=== PATIENT | female | born 1955 | race Hispanic/Latino ===

== ENCOUNTER 2018-06-14 15:44 | Emergency (ER) | payer BC ==
[2018-06-14] MEDS ORDERED: METHYLPREDNISOLONE 125 MG INJ ONE (16:13)
[2018-06-14] MEDS ORDERED: DIPHENHYDRAMINE 50 MG/ML VIAL ONE (16:13)
[2018-06-14] MEDS ORDERED: NA CHLORIDE 0.9% 1,000 ML ONE (16:13)
[2018-06-14] MEDS ORDERED: FAMOTIDINE 20 MG/2 ML VIAL IV ONE (16:13)
[2018-06-14] MEDS ORDERED: ALBUTEROL 2.5 MG/3 ML NEB SOL ONE (16:13)
--- NOTE | 2018-06-14 18:10 | ER ---
Nurse's Notes [facility] Name: Perlita Zapata Age: 62 yrs Sex: Female : 1955 Arrival Date: 06/14/2018 Time: 15:46 Bed 18 Private MD: Diagnosis: Allergy to seafood Presentation: 06/14 15:55 Presenting complaint: Patient states: i ate crawfish 30 minutes ago and now i am tw2 itching and i feel short of breath, i am allergy to shrimp. Transition of care: patient was not received from another setting of care. Onset: The symptoms/episode began/occurred suddenly, 30 minute(s) ago. Anaphylaxis evaluation, the patient reports or I have noted the following symptoms which indicate a significant risk of anaphylaxis: shortness of breath urticaria. Onset of symptoms was June 14, 2018. Risk Assessment: Do you want to hurt yourself or someone else? Patient reports no desire to harm self or others. Initial Sepsis Screen: Does the patient meet any 2 criteria? No. Patient's initial sepsis screen is negative. Does the patient have a suspected source of infection? No. Patient's initial sepsis screen is negative. Care prior to arrival: "i took some childrens benadryl because that's all my daughter had at her house". 15:55 Method Of Arrival: Ambulatory tw2 15:55 Acuity: PAULA 3 tw2 Historical: - Allergies: 15:59 Codeine; tw2 15:59 shrimp; tw2 - Home Meds: 15:59 "vitamins only" [Active]; tw2 - PMHx: 15:59 None; tw2 - PSHx: 15:59 Hysterectomy; Tubal ligation; Cholecystectomy; right knee surgery; tw2 - Immunization history:: Adult Immunizations Adult Immunizations. - Social history:: Smoking status: . - Ebola Screening: : Patient negative for fever greater than or equal to 101.5 degrees Fahrenheit, and additional compatible Ebola Virus Disease symptoms. Screenin:20 Abuse screen: Denies threats or abuse. Nutritional screening: No deficits noted. tw2 Tuberculosis screening: No symptoms or risk factors identified. Fall Risk None identified. Assessment: 16:18 General: Appears uncomfortable, well groomed, Behavior is anxious. Pain: Denies pain. tw2 Neuro: Level of Consciousness is awake, alert, obeys commands, Oriented to person, place, time, situation. Cardiovascular: Heart tones S1 S2 Patient's skin is warm and dry. Respiratory: Reports shortness of breath Airway is patent Respiratory effort is even, unlabored, Respiratory pattern is tachypnea Breath sounds are clear bilaterally. GI: No signs and/or symptoms were reported involving the gastrointestinal system. : No signs and/or symptoms were reported regarding the genitourinary system. Derm: Rash noted that is raised, urticaria, on back, chest, abdomen, right arm and left arm pt reports itching all over. 16:44 Reassessment: Patient appears in no apparent distress at this time. Patient and/or tw2 family updated on plan of care and expected duration. Pain level reassessed. Patient is alert, oriented x 3, equal unlabored respirations, skin warm/dry/pink. Patient states feeling better. Patient states symptoms have improved. 17:35 Reassessment: Patient appears in no apparent distress at this time. Patient and/or tw2 family updated on plan of care and expected duration. Pain level reassessed. Patient is alert, oriented x 3, equal unlabored respirations, skin warm/dry/pink. 18:27 Reassessment: Patient appears in no apparent distress at this time. Patient and/or tw2 family updated on plan of care and expected duration. Pain level reassessed. Patient is alert, oriented x 3, equal unlabored respirations, skin warm/dry/pink. Patient states feeling better. Patient states symptoms have improved. 19:00 Reassessment: Patient appears in no apparent distress at this time. Patient and/or tw2 family updated on plan of care and expected duration. Pain level reassessed. Patient is alert, oriented x 3, equal unlabored respirations, skin warm/dry/pink. Patient states feeling better. Patient states symptoms have improved. Vital Signs: 15:57 BP 166 / 102; Pulse 105; Resp 22; Temp 97.8(O); Pulse Ox 98% on R/A; Pain 0/10; tw2 16:18 BP 138 / 82; Pulse 91; Resp 17; Pulse Ox 96% on R/A; tw2 17:35 BP 137 / 62; Pulse 84; Resp 17; Pulse Ox 99% on R/A; tw2 18:26 BP 139 / 74; Pulse 81; Resp 17; Pulse Ox 99% on R/A; tw2 15:57 "no pain im just itching" tw2 ED Course: 15:46 Patient arrived in ED. mr 15:55 Zoila Salguero, RN is Primary Nurse. tw2 15:55 Bed in low position. Call light in reach. channel marketing specialist on. Pulse ox on. NIBP on. tw2 Warm blanket given. 15:57 Triage completed. tw2 15:57 Jeb Still PA is PHCP. cp 15:57 Jeb Nance MD is Attending Physician. cp 15:57 Arm band placed on. tw2 19:00 No provider procedures requiring assistance completed. IV discontinued, intact, tw2 bleeding controlled, No redness/swelling at site. Pressure dressing applied. Administered Medications: 16:05 Drug: Pepcid 20 mg Route: IVP; Site: right hand; tw2 16:45 Follow up: Response: No adverse reaction tw2 16:08 Drug: SOLU-Medrol 125 mg Route: IVP; Site: right hand; tw2 16:45 Follow up: Response: No adverse reaction tw2 16:12 Drug: Benadryl 50 mg Route: IVP; Site: right hand; tw2 16:44 Follow up: Response: No adverse reaction; Marked relief of symptoms tw2 16:16 Drug: NS 0.9% 1000 ml Route: IV; Rate: 1 bolus; Site: right hand; tw2 16:16 Drug: Albuterol 2.5 mg Route: Inhalation; tw2 16:45 Follow up: Response: No adverse reaction tw2 Outcome: 18:10 Discharge ordered by . cp 19:00 Discharged to home ambulatory, with significant other. tw2 19:00 Condition: stable 19:00 Discharge instructions given to patient, significant other, Instructed on discharge instructions, follow up and referral plans. medication usage, Demonstrated understanding of instructions, follow-up care, medications, Prescriptions given X 3. 19:01 Patient left the ED. tw2 Signatures: Becky DelgadoMartha, RN RN Jeb Guzman PA PA cp Wise, Tara, RN RN tw2
--- NOTE | 2018-06-14 18:10 | EDPHYS ---
Physician Documentation [facility] Name: Perlita Zapata Age: 62 yrs Sex: Female : 1955 Arrival Date: 06/14/2018 Time: 15:46 Bed 18 Private MD: ED Physician Jeb Nance HPI: 06/14 16:00 This 62 yrs old Female presents to ER via Ambulatory with complaints of cp Allergic Reaction, Itching. 16:00 The patient presents with itching. Onset: The symptoms/episode began/occurred just cp prior to arrival. Possible causes: shellfish. At home the patient or guardian has treated the symptoms with took 1 teaspoon of children's benadryl REPAIR CLERK. Severity of symptoms: in the emergency department the symptoms are unchanged despite home interventions. Patient reports known allergy to shrimp. Noticed generalized itching suddenly after eating crawfish 30 minutes ago. Historical: - Allergies: 15:59 Codeine; tw2 15:59 shrimp; tw2 - Home Meds: 15:59 "vitamins only" [Active]; tw2 - PMHx: 15:59 None; tw2 - PSHx: 15:59 Hysterectomy; Tubal ligation; Cholecystectomy; right knee surgery; tw2 - Immunization history:: Adult Immunizations Adult Immunizations. - Social history:: Smoking status: . - Ebola Screening: : Patient negative for fever greater than or equal to 101.5 degrees Fahrenheit, and additional compatible Ebola Virus Disease symptoms. ROS: 16:05 Constitutional: Negative for body aches, chills, fever, poor PO intake. cp 16:05 Eyes: Negative for injury, pain, redness, and discharge. cp 16:05 Cardiovascular: Negative for chest pain, edema, palpitations. cp 16:05 ENT: Negative for drainage from ear(s), ear pain, sore throat, difficulty swallowing, cp difficulty handling secretions. 16:05 Respiratory: Negative for cough. 16:05 Abdomen/GI: Negative for abdominal pain, nausea, vomiting, and diarrhea. 16:05 Skin: Positive for rash, diffusely. 16:05 Neuro: Negative for altered mental status, dizziness, headache, weakness. 16:05 All other systems are negative. Exam: 16:10 Constitutional: The patient appears in no acute distress, alert, awake, cp non-diaphoretic, non-toxic, well developed, well nourished. 16:10 Head/Face: Normocephalic, atraumatic. Eyes: Pupils equal round and reactive to light, cp extra-ocular motions intact. Lids and lashes normal. Conjunctiva and sclera are non-icteric and not injected. Cornea within normal limits. Periorbital areas with no swelling, redness, or edema. ENT: Nares patent. No nasal discharge, no septal abnormalities noted. Tympanic membranes are normal and external auditory canals are clear. Oropharynx with no redness, swelling, or masses, exudates, or evidence of obstruction, uvula midline. Mucous membranes moist. 16:10 Chest/axilla: Palpation: is normal, no crepitus, no tenderness. 16:10 Cardiovascular: Rate: tachycardic, Rhythm: regular, JVD: is not appreciated. 16:10 Respiratory: the patient does not display signs of respiratory distress, Respirations: normal, no use of accessory muscles, no retractions, no splinting, no tachypnea, labored breathing, is not present, Breath sounds: are clear throughout, no decreased breath sounds, no stridor, no wheezing. 16:10 Abdomen/GI: Exam negative for discomfort, distension, guarding, Inspection: abdomen appears normal. 16:10 Back: pain, is absent, ROM is normal. 16:10 Skin: consistent with urticaria, and is diffusely located. 16:10 Neuro: Orientation: to person, place \\T\\ time. Mentation: is normal, Cerebellar function: is grossly normal, Motor: moves all fours, strength is normal, Sensation: is normal. Vital Signs: 15:57 BP 166 / 102; Pulse 105; Resp 22; Temp 97.8(O); Pulse Ox 98% on R/A; Pain 0/10; tw2 16:18 BP 138 / 82; Pulse 91; Resp 17; Pulse Ox 96% on R/A; tw2 17:35 BP 137 / 62; Pulse 84; Resp 17; Pulse Ox 99% on R/A; tw2 18:26 BP 139 / 74; Pulse 81; Resp 17; Pulse Ox 99% on R/A; tw2 15:57 "no pain im just itching" tw2 MDM: 15:57 Patient medically screened. cp 16:00 Differential diagnosis: anaphylaxis, angioedema, urticaria. cp 16:45 ED course: VSS. Patient reports generalized itching improved. cp 17:53 Data reviewed: vital signs, nurses notes, and as a result, I will discharge patient. 06/14 15:59 Order name: IV Start; Complete Time: 16:16 tw2 Administered Medications: 16:05 Drug: Pepcid 20 mg Route: IVP; Site: right hand; tw2 16:45 Follow up: Response: No adverse reaction tw2 16:08 Drug: SOLU-Medrol 125 mg Route: IVP; Site: right hand; tw2 16:45 Follow up: Response: No adverse reaction tw2 16:12 Drug: Benadryl 50 mg Route: IVP; Site: right hand; tw2 16:44 Follow up: Response: No adverse reaction; Marked relief of symptoms tw2 16:16 Drug: NS 0.9% 1000 ml Route: IV; Rate: 1 bolus; Site: right hand; tw2 16:16 Drug: Albuterol 2.5 mg Route: Inhalation; tw2 16:45 Follow up: Response: No adverse reaction tw2 Disposition: 06/15 07:31 Co-signature as Attending Physician, Jeb Nance MD I agree with the assessment and katia plan of care. Disposition: 06/14/18 18:10 Discharged to Home. Impression: Allergy to seafood. - Condition is Stable. - Discharge Instructions: Allergies, Adult, Epinephrine Injection, Seafood Allergy. - Prescriptions for prednisone 50 mg Oral tablet - take 1 tablet by ORAL route once daily for 5 days; 5 tablet. Pepcid 20 mg Oral Tablet - take 1 tablet by ORAL route every 12 hours for 5 days; 10 tablet. EpiPen 0.3 mg Injection auto- injector - inject 1 pen by INTRAMUSCULAR route as directed Inject into the outer portion of the thigh, through clothing if necessary. Indicated in the emergency treatment of allergic reactions; 2 Kit. - Medication Reconciliation Form, Thank You Letter, Antibiotic Education, Prescription Opioid Use form. - Follow up: Private Physician; When: 2 - 3 days; Reason: Recheck today's complaints. - Problem is new. - Symptoms have improved. Signatures: Jeb Nance MD MD cha Smirch, Shelby, RN RN Jeb Still PA PA cp Wise, Tara RN RN tw2 Corrections: (The following items were deleted from the chart) 06/14 19:01 18:10 06/14/2018 18:10 Discharged to Home. Impression: Allergy to seafood. Condition is tw2 Stable. Forms are Medication Reconciliation Form, Thank You Letter, Antibiotic Education, Prescription Opioid Use. Follow up: Private Physician; When: 2 - 3 days; Reason: Recheck today's complaints. Problem is new. Symptoms have improved. cp
== END 2018-06-14 19:01 | disposition home or self-care (01) ==
LOC: ER 15:44
DX: T78.1XXA Other adverse food reactions, not elsewhere classified, initial encounter (principal); X58.XXXA Exposure to other specified factors, initial encounter; Z88.6 Allergy status to analgesic agent; Z91.013 Allergy to seafood
CPT/HCPCS: 96374; 96375; 99284; J2930; J7030

== ENCOUNTER 2018-08-18 20:15 | Emergency (ER) | payer BC ==
--- OUTSIDE RECORDS SUMMARY | 2018-08-18 20:18 | XMS REPORT ---
:1955 Author Organization [employer] Care Team Providers Name Role Phone Yamel Mansfield Provider Role Unavailable Allergies, Adverse Reactions, Alerts Substance Reaction Event Type codeine heart racing; felt like she was going to pass out; nausea Drug Allergy Problems Problem Type Condition Code Onset Dates Condition Status Problem Hypercholesterolemia E78.00 Active Problem Right hip pain M25.551 Active Problem Dizziness R42 Active Problem Acute right ankle pain M25.571 Active Problem Other chronic pain G89.29 Active Problem Pain in right knee M25.561 Active Problem Mixed hyperlipidemia E78.2 Active Problem Right thigh pain M79.651 Active Problem Swelling of right lower extremity M79.89 Active Problem Joint swelling M25.40 Active Assessment Right hip pain M25.551 Active Assessment Right thigh pain M79.651 Active Assessment Joint swelling M25.40 Active Assessment Prediabetes R73.03 Active Assessment Pain in right knee M25.561 Active Problem Allergic rhinitis, unspecified J30.9 Active seasonality, unspecified trigger Assessment Mixed hyperlipidemia E78.2 Active Problem Prediabetes R73.03 Active Medications Medication Code Code Instructions Start End Status Dosage System Date Date Multivitamin [facility] [id number] - Orally Active as Adult directed Fluticasone [facility] [id number] 50 MCG/BLIST Active 1 puff Propionate Inhalation (Inhal) Twice a day Meloxicam [facility] [id number] 15 MG Orally JuneOct 30, Active 1/2 to 1 Once a day as 2018 tablet needed for pain Vitamin D ND 05863974469 2000 UNIT Active 1 tablet Orally Once a day Results No Known Results Summary Purpose [employer] Submission
--- OUTSIDE RECORDS SUMMARY | 2018-08-18 20:18 | XMS REPORT ---
:1955 Author Organization [employer] Care Team Providers Name Role Phone Yamel Mansfield Provider Role Unavailable Allergies, Adverse Reactions, Alerts Substance Reaction Event Type codeine heart racing; felt like she was going to pass out; nausea Drug Allergy Problems Problem Type Condition Code Onset Dates Condition Status Assessment Acute right ankle pain M25.571 Active Problem Allergic rhinitis, unspecified J30.9 Active seasonality, unspecified trigger Assessment Swelling of right lower extremity M79.89 Active Assessment Other chronic pain G89.29 Active Assessment Pain in right knee M25.561 Active Problem Swelling of right lower extremity M79.89 Active Problem Acute right ankle pain M25.571 Active Problem Other chronic pain G89.29 Active Problem Dizziness R42 Active Problem Prediabetes R73.03 Active Problem Pain in right knee M25.561 Active Problem Hypercholesterolemia E78.00 Active Medications Medication Code Code Instructions Start End Status Dosage System Date Date Multivitamin [facility] [id number] - Orally Active as Adult directed Meloxicam [facility] 14431505748 15 MG Orally JuneAugust 14, Active 1/2 to 1 Once a day as 2018 tablet needed for pain Vitamin D ND 43492429690 2000 UNIT Active 1 tablet Orally Once a day Fluticasone [facility] [address]-49 50 MCG/BLIST Active 1 puff Propionate Inhalation (Inhal) Twice a day Results No Known Results Summary Purpose [employer] Submission
--- NOTE | 2018-08-18 21:24 | ER ---
Nurse's Notes [facility] Name: Perlita Zapata Age: 62 yrs Sex: Female : 1955 Arrival Date: 08/18/2018 Time: 20:18 Bed 8 Private MD: Yamel Mansfield Diagnosis: Pain in right knee Presentation: 08/18 20:31 Presenting complaint: Patient states: my right knee has been hurting for a week the bb pain is getting so bad she is having difficulty walking and she has appt with doctor on but could not wait. The pain is sharp and at worse is 9/10. Transition of care: patient was not received from another setting of care. Onset of symptoms was August 11, 2018. Risk Assessment: Do you want to hurt yourself or someone else? Patient reports no desire to harm self or others. Initial Sepsis Screen: Does the patient meet any 2 criteria? No. Patient's initial sepsis screen is negative. Does the patient have a suspected source of infection? No. Patient's initial sepsis screen is negative. Care prior to arrival: None. 20:31 Method Of Arrival: Ambulatory bb 20:31 Acuity: PAULA 4 bb Historical: - Allergies: 20:34 Codeine; bb 20:34 shrimp; bb - Home Meds: 20:34 None [Active]; bb - PMHx: 20:34 None; bb - PSHx: 20:34 Knee surgery; Hysterectomy; Tubal ligation; Cholecystectomy; bb - Immunization history:: Adult Immunizations up to date. - Social history:: Smoking status: Patient/guardian denies using tobacco. - Ebola Screening: : No symptoms or risks identified at this time. Screenin:28 Abuse screen: Denies threats or abuse. Denies injuries from another. Nutritional aa1 screening: No deficits noted. Tuberculosis screening: No symptoms or risk factors identified. Fall Risk None identified. Assessment: 20:28 General: Appears in no apparent distress. comfortable, Behavior is calm, cooperative, aa1 appropriate for age. Pain: Complains of pain in right knee Pain began 1 week ago Aggravated by weight bearing. Neuro: Level of Consciousness is awake, alert, obeys commands, Oriented to person, place, time, situation, Moves all extremities. Full function Gait is steady. Respiratory: Airway is patent Respiratory effort is even, unlabored, Respiratory pattern is regular, symmetrical. GI: No signs and/or symptoms were reported involving the gastrointestinal system. : No signs and/or symptoms were reported regarding the genitourinary system. EENT: No signs and/or symptoms were reported regarding the EENT system. Derm: Skin is intact, is healthy with good turgor, Skin is pink, warm \T\ dry. Musculoskeletal: Circulation, motion, and sensation intact. Capillary refill < 3 seconds, Range of motion: intact in all extremities. 21:41 Reassessment: Patient appears in no apparent distress at this time. Patient is alert, aa1 oriented x 3, equal unlabored respirations, skin warm/dry/pink. Discussed d/c \T\ f/u instructions with pt \T\ spouse; denies questions or concerns at this time. Vital Signs: 20:34 BP 157 / 80; Pulse 73; Resp 16 S; Temp 97.9(O); Pulse Ox 98% on R/A; Weight 76.66 kg bb (R); Height 4 ft. 11 in. (149.86 cm) (R); Pain 9/10; 21:35 BP 113 / 65; Pulse 68; Resp 18; Temp 98.0; Pulse Ox 99% on R/A; aa1 20:34 Body Mass Index 34.13 (76.66 kg, 149.86 cm) bb ED Course: 20:18 Patient arrived in ED. es 20:18 Yamel Mansfield MD is Private Physician. es 20:25 Mini Dodge FNP-C is [facility]. kb 20:25 Misha Lloyd MD is Attending Physician. kb 20:28 Patient has correct armband on for positive identification. Bed in low position. Call aa1 light in reach. Pulse ox on. NIBP on. 20:34 Triage completed. bb 20:34 Arm band placed on Patient placed in an exam room, on a stretcher, on pulse oximetry. bb Family accompanied patient. 20:38 Hilda Johnson, CURTIS is Primary Nurse. aa1 21:03 Knee Right 3 View XRAY In Process Unspecified. EDMS 21:23 Yamel Mansfield MD is Referral Physician. kb 21:39 No provider procedures requiring assistance completed. Patient did not have IV access aa1 during this emergency room visit. Crutch training done. Knee immobilizer applied on right knee. Administered Medications: No medications were administered Outcome: 21:23 Discharge ordered by . linnette 21:41 Discharged to home ambulatory, with crutches, with significant other. aa1 21:41 Condition: good 21:41 Discharge instructions given to patient, significant other, Instructed on discharge instructions, follow up and referral plans. medication usage, crutch walking, Demonstrated understanding of instructions, follow-up care, medications, crutch walking, Prescriptions given X 2. 21:42 Patient left the ED. aa1 Signatures: Dispatcher [employer] EDMD Mini Dodge, REEL STRIPPER-C REEL STRIPPER-Hilda Montejo RN RN aa1 Carmen Tracy Brenda RN RN bb
--- NOTE | 2018-08-18 21:24 | EDPHYS ---
Physician Documentation [facility] Name: Perlita Zapata Age: 62 yrs Sex: Female : 1955 Arrival Date: 08/18/2018 Time: 20:18 Bed 8 Private MD: Yamel Masnfield ED Physician Misha Lloyd HPI: 08/18 21:19 This 62 yrs old Female presents to ER via Ambulatory with complaints of Knee kb Pain. 21:19 The patient presents with pain, that is acute. The complaints affect the right knee. kb Context: The problem was sustained believes it is from repetitive squating while doing yard work, resulted from a repetitive motion, the patient can fully bear weight, the patient is able to ambulate. Onset: The symptoms/episode began/occurred 1 week(s) ago. Modifying factors: The symptoms are alleviated by nothing. the symptoms are aggravated by weight bearing. Associated signs and symptoms: The patient has no apparent associated signs or symptoms. Treatment prior to arrival includes: no previous treatment. Severity of symptoms: At their worst the symptoms were moderate, in the emergency department the symptoms are unchanged. The patient has not experienced similar symptoms in the past. The patient has not recently seen a physician. Historical: - Allergies: 20:34 Codeine; bb 20:34 shrimp; bb - Home Meds: 20:34 None [Active]; bb - PMHx: 20:34 None; bb - PSHx: 20:34 Knee surgery; Hysterectomy; Tubal ligation; Cholecystectomy; bb - Immunization history:: Adult Immunizations up to date. - Social history:: Smoking status: Patient/guardian denies using tobacco. - Ebola Screening: : No symptoms or risks identified at this time. ROS: 21:18 Constitutional: Negative for fever, chills, and weight loss, Neck: Negative for injury, kb pain, and swelling, Cardiovascular: Negative for chest pain, palpitations, and edema, Respiratory: Negative for shortness of breath, cough, wheezing, and pleuritic chest pain, Abdomen/GI: Negative for abdominal pain, nausea, vomiting, diarrhea, and constipation, Skin: Negative for injury, rash, and discoloration, Neuro: Negative for headache, weakness, numbness, tingling, and seizure. 21:18 MS/extremity: Positive for pain, of the right knee. Exam: 21:18 Constitutional: This is a well developed, well nourished patient who is awake, alert, kb and in no acute distress. Head/Face: Normocephalic, atraumatic. Chest/axilla: Normal chest wall appearance and motion. Nontender with no deformity. No lesions are appreciated. Cardiovascular: Regular rate and rhythm with a normal S1 and S2. No gallops, murmurs, or rubs. Normal PMI, no JVD. No pulse deficits. Respiratory: Lungs have equal breath sounds bilaterally, clear to auscultation and percussion. No rales, rhonchi or wheezes noted. No increased work of breathing, no retractions or nasal flaring. Abdomen/GI: Soft, non-tender, with normal bowel sounds. No distension or tympany. No guarding or rebound. No evidence of tenderness throughout. Back: No spinal tenderness. No costovertebral tenderness. Full range of motion. Skin: Warm, dry with normal turgor. Normal color with no rashes, no lesions, and no evidence of cellulitis. MS/ Extremity: Pulses equal, no cyanosis. Neurovascular intact. Full, normal range of motion. Neuro: Awake and alert, GCS 15, oriented to person, place, time, and situation. Cranial nerves II-XII grossly intact. Motor strength 5/5 in all extremities. Sensory grossly intact. Cerebellar exam normal. Normal gait. Vital Signs: 20:34 BP 157 / 80; Pulse 73; Resp 16 S; Temp 97.9(O); Pulse Ox 98% on R/A; Weight 76.66 kg bb (R); Height 4 ft. 11 in. (149.86 cm) (R); Pain 9/10; 21:35 BP 113 / 65; Pulse 68; Resp 18; Temp 98.0; Pulse Ox 99% on R/A; aa1 20:34 Body Mass Index 34.13 (76.66 kg, 149.86 cm) bb MDM: 20:25 Patient medically screened. kb 21:17 Data reviewed: vital signs, nurses notes. Data interpreted: Pulse oximetry: on room air kb is 98 %. Interpretation: normal. Test interpretation: by ED physician or midlevel provider: plain radiologic studies, negative for fracture. Counseling: I had a detailed discussion with the patient and/or guardian regarding: the historical points, exam findings, and any diagnostic results supporting the discharge/admit diagnosis, radiology results, the need for outpatient follow up, a orthopedic surgeon, to return to the emergency department if symptoms worsen or persist or if there are any questions or concerns that arise at home. 21:18 ED course: Scheduled for appt with Norris on . Educated to keep appt. . kb 08/18 20:29 Order name: Knee Right 3 View XRAY kb 08/18 21:17 Order name: Knee Immobilizer 08/18 21:17 Order name: Crutches Administered Medications: No medications were administered Disposition: 08/19 00:00 Co-signature as Attending Physician, Misha Lloyd MD. Disposition: 08/18/18 21:23 Discharged to Home. Impression: Pain in right knee. - Condition is Stable. - Discharge Instructions: Knee Pain, [id number]. - Prescriptions for Tramadol 50 mg Oral Tablet - take 1 tablet by ORAL route every 8 hours as needed; 12 tablet. - Medication Reconciliation Form, Thank You Letter, Antibiotic Education, Prescription Opioid Use form. - Follow up: Emergency Department; When: As needed; Reason: Worsening of condition. Follow up: Yamel Mansfield MD; When: 2 - 3 days; Reason: Recheck today's complaints, Continuance of care, Re-evaluation by your physician. Signatures: Dispatcher [employer] EDVA Mini Dodge, WINDOWS DESKTOP ENGINEER-C WINDOWS DESKTOP ENGINEER-CkHilda Bonner RN RN aa1 Megan Scherer RN RN bb Misha Lloyd MD MD Corrections: (The following items were deleted from the chart) 08/18 21:42 21:23 08/18/2018 21:23 Discharged to Home. Impression: Pain in right knee. Condition is aa1 Stable. Forms are Medication Reconciliation Form, Thank You Letter, Antibiotic Education, Prescription Opioid Use. Follow up: Emergency Department; When: As needed; Reason: Worsening of condition. Follow up: Yamel Mansfield; When: 2 - 3 days; Reason: Recheck today's complaints, Continuance of care, Re-evaluation by your physician. kb
--- NOTE | 2018-08-19 08:12 | RAD REPORT ---
EXAM DESCRIPTION: RAD - Knee Right 3 View - 08/18/2018 9:03 pm CLINICAL HISTORY: PAIN Knee pain, difficulty walking COMPARISON: Knee Right 2 View dated 07/15/2018; Knee Right 2 View dated 07/13/2015 FINDINGS: A small suprapatellar joint effusion is suspected. No acute fracture or dislocation eviden t. If pain persists or progresses, MR imaging followup would be recommended.
== END 2018-08-18 21:42 | disposition home or self-care (01) ==
LOC: ER 20:15
DX: M25.561 Pain in right knee (principal); Z88.5 Allergy status to narcotic agent; Z91.013 Allergy to seafood
CPT/HCPCS: 99284

== ENCOUNTER 2020-12-12 06:09 | Emergency (ER) | payer BC, OTHER ==
[2020-12-12 06:48] LABS: Urine Blood Negative (Negative); Urine Glucose Negative (Negative); Urine Protein Negative (Negative); Urine Specific Gravity 1.025 (1.005-1.030); Urine pH 5.5 (5.0-7.0)
[2020-12-12 07:08] LABS: Absolute Lymphocytes (CBC) 2.7 K/uL (0.7-4.9); Basophils % 0.9 % (0-1.3); Hematocrit 40.8 % (36.0-45.0); Lymphocytes % 32.4 % (15.3-44.8); MPV 7.4 fL (7.6-11.3); RBC Red Blood Cell Count 4.64 M/uL (3.86-4.86)
[2020-12-12 07:17] LABS: Protime INR 1.03
[2020-12-12] MEDS ORDERED: FAMOTIDINE 20 MG/2 ML VIAL IV ONE (07:24)
[2020-12-12] MEDS ORDERED: NA CHLORIDE 0.9% 500 ML ONE (07:24)
[2020-12-12] MEDS ORDERED: ONDANSETRON 4 MG/2 ML VIAL ONE (07:24)
[2020-12-12 07:35] LABS: ALT/SGPT 29 U/L (12-78); AST/SGOT 17 U/L (15-37); Alkaline Phosphatase 124 U/L (45-117); BUN Blood Urea Nitrogen 12 mg/dL (7-18); Bicarbonate 29 mmol/L (21-32); Bilirubin Direct 0.1 mg/dL (0-0.2); Bilirubin Total 0.4 mg/dL (0.2-1.0); Glucose Level 108 mg/dL (74-106); Magnesium 2.4 mg/dL (1.8-2.4); Potassium 3.5 mmol/L (3.5-5.1); Protein, Total 8.1 g/dL (6.4-8.2); Sodium Level 142 mmol/L (136-145); Troponin (Emerg Dept Use Only) < 0.02 ng/mL (0.0-0.045)
[2020-12-12 07:47] LABS: Urine Bacteria 20-50 /HPF (<20); Urine Mucus 1+ /HPF (NONE SEEN); Urine RBC <5 /HPF (NONE SEEN)
--- NOTE | 2020-12-12 07:56 | RAD REPORT ---
EXAM DESCRIPTION: CT - Head Brain Wo Cont - 12/12/2020 7:45 am CLINICAL HISTORY: Weakness and nausea COMPARISON: None. TECHNIQUE: Computed axial tomography of the head was obtained. IV contrast was not requested. All CT scans are performed using dose optimization technique as appropriate and may include automated exposure control or mA/KV adjustment according to patient size. FINDINGS: An intracranial bleed is not seen . The ventricles are normal in caliber. No extra-axial fluid collection is noted. Fluid within the sinuses/ mastoids is not seen. IMPRESSION: No acute intracranial abnormality is seen. If patient's symptoms persist MRI of the bra in would be recommended.
--- NOTE | 2020-12-12 08:20 | EDPHYS ---
Physician Documentation [facility] Name: Perlita Zapata Age: 65 yrs Sex: Female : 1955 Arrival Date: 12/12/2020 Time: 06:18 Bed 11 Private MD: ED Physician Mir Saxena HPI: 12/12 06:33 This 65 yrs old Female presents to ER via Wheelchair with complaints of cp Nausea/Vomiting, General Weakness. 06:33 The patient presents to the emergency department with nausea, that is mild, vomiting, 1 cp times today. 06:33 Onset: The symptoms/episode began/occurred while in ED with family member, patient cp reports she started having general weakness, nausea. 1 episode of vomiting. Patient denies chest and/or abdominal pain. Historical: - Allergies: 06:25 Codeine; bc5 06:25 shrimp; bc5 - Immunization history:: Adult Immunizations up to date, . - Social history:: Smoking status: Patient denies any tobacco usage or history of. ROS: 06:35 Constitutional: Negative for body aches, chills, fever, poor PO intake. cp 06:35 Eyes: Negative for injury, pain, redness, and discharge. cp 06:35 ENT: Negative for drainage from ear(s), ear pain, sore throat, difficulty swallowing, difficulty handling secretions. 06:35 Cardiovascular: Negative for chest pain, edema, palpitations. 06:35 Respiratory: Negative for cough, shortness of breath, wheezing. 06:35 Abdomen/GI: Positive for nausea, vomiting, Negative for abdominal pain, diarrhea, constipation, anorexia, hematemesis. 06:35 Back: Negative for pain at rest, pain with movement. 06:35 : Negative for urinary symptoms. 06:35 Skin: Negative for cellulitis, rash. 06:35 Neuro: Positive for weakness, Negative for altered mental status, dizziness, headache, loss of consciousness, syncope. 06:35 All other systems are negative. Exam: 06:40 Constitutional: The patient appears in no acute distress, alert, awake, cp non-diaphoretic, non-toxic, well developed, well nourished. 06:40 Head/Face: Normocephalic, atraumatic. cp 06:40 Eyes: Periorbital structures: appear normal, Conjunctiva: normal, no exudate, no injection, Sclera: no appreciated abnormality, Lids and lashes: appear normal, bilaterally. 06:40 ENT: External ear(s): are unremarkable, Nose: is normal, Mouth: Lips: moist, Oral mucosa: moist, Posterior pharynx: Airway: no evidence of obstruction, patent. 06:40 Chest/axilla: Inspection: normal, Palpation: is normal, no crepitus, no tenderness. 06:40 Cardiovascular: Rate: normal, Rhythm: regular. 06:40 Respiratory: the patient does not display signs of respiratory distress, Respirations: normal, no use of accessory muscles, no retractions, labored breathing, is not present, Breath sounds: are clear throughout, no decreased breath sounds. 06:40 Abdomen/GI: Inspection: abdomen appears normal, Bowel sounds: active, all quadrants, Palpation: abdomen is soft and non-tender, in all quadrants. 06:40 Back: pain, is absent, ROM is normal. 06:40 Neuro: Orientation: to person, place \T\ time. Mentation: is normal, Cerebellar function: is grossly normal, Motor: moves all fours, strength is normal, Sensation: is normal. 06:53 ECG was reviewed by the Attending Physician. cp Vital Signs: 06:21 BP 116 / 62; Pulse 66; Resp 15; Temp 97.6(T); Pulse Ox 98% on R/A; Weight 76.66 kg; bc5 Height 4 ft. 11 in. (149.86 cm) (R); Pain 0/10; 08:19 BP 100 / 64; Pulse 68; Resp 16; Pulse Ox 100% on R/A; Pain 0/10; ap3 06:21 Body Mass Index 34.13 (76.66 kg, 149.86 cm) bc5 MDM: 06:23 Patient medically screened. katia 07:00 Differential diagnosis: gastritis, viral gastroenteritis, gastroenteritis, dehydration, cp hyperglycemia, hypoglycemia, electrolyte abnormality. 08:19 Data reviewed: vital signs, nurses notes, lab test result(s), EKG, radiologic studies, cp CT scan. 08:19 Test interpretation: by ED physician or midlevel provider: ECG. Counseling: I had a cp detailed discussion with the patient and/or guardian regarding: the historical points, exam findings, and any diagnostic results supporting the discharge/admit diagnosis, lab results, radiology results, to return to the emergency department if symptoms worsen or persist or if there are any questions or concerns that arise at home. Response to treatment: the patient's symptoms have markedly improved after treatment, patient is well hydrated. VSS. Patient reports symptoms improved. Vomiting resolved. Will discharge to home for continued monitoring. 12/12 06:27 Order name: Glucose, Ancillary Testing; Complete Time: 07:29 EDMS 12/12 06:30 Order name: Basic Metabolic Panel 12/12 06:30 Order name: CBC with Diff 12/12 06:30 Order name: LFT's 12/12 06:30 Order name: Magnesium; Complete Time: 07:58 12/12 06:30 Order name: PT-INR; Complete Time: 07:29 12/12 06:30 Order name: Troponin (emerg Dept Use Only); Complete Time: 07:58 12/12 06:30 Order name: Urine Microscopic Only; Complete Time: 07:58 12/12 07:59 Interpretation: Normal except: UBACT 20-50. 12/12 06:31 Order name: Basic Metabolic Panel; Complete Time: 07:58 EDMS 12/12 07:58 Interpretation: Normal except: GLUC 108; GFR 83. 12/12 06:31 Order name: CBC with Automated Diff; Complete Time: 07:29 EDMS 12/12 07:29 Interpretation: Normal except: MPV 7.4. 12/12 06:31 Order name: Liver (Hepatic) Function; Complete Time: 07:58 EDMS 12/12 06:47 Order name: Urine Dipstick-Ancillary; Complete Time: 07:29 EDMN 12/12 07:59 Interpretation: Normal except: UESTR Trace. 12/12 07:30 Order name: CT Head Brain wo Cont; Complete Time: 07:58 12/12 07:59 Interpretation: Report reviewed. 12/12 07:48 Order name: Urine Culture EDMN 12/12 06:30 Order name: EKG; Complete Time: 06:31 12/12 06:30 Order name: Cardiac monitoring; Complete Time: 06:58 12/12 06:30 Order name: EKG - Nurse/Tech; Complete Time: 06:58 12/12 06:30 Order name: IV Saline Lock; Complete Time: 06:58 12/12 06:30 Order name: Labs collected and sent; Complete Time: 06:57 cp 12/12 06:30 Order name: O2 Per Protocol; Complete Time: 06:37 cp 12/12 06:30 Order name: O2 Sat Monitoring; Complete Time: 06:37 cp 12/12 06:30 Order name: Urine Dipstick-Ancillary (obtain specimen); Complete Time: 06:58 cp EC:53 Rate is 60 beats/min. Rhythm is regular. UT interval is normal. QRS interval is cp prolonged at 118 msec. QT interval is normal. T waves are Inverted in leads aVR, V2. Interpreted by me. Reviewed by me. Administered Medications: 07:07 Drug: Zofran (Ondansetron) 4 mg Route: IVP; Infused Over: 2 mins; Site: left wg antecubital; 08:20 Follow up: Response: No adverse reaction; Nausea is decreased ap3 07:07 Drug: Pepcid (famotidine) 20 mg Route: IVP; Infused Over: 2 mins; Site: right wg antecubital; 08:20 Follow up: Response: No adverse reaction ap3 07:07 Drug: NS 0.9% 500 ml Route: IV; Rate: bolus; Infused Over: 15 mins; Site: left wg antecubital; Delivery: Primary tubing; 08:19 Follow up: IV Status: Completed infusion; IV Intake: 500ml ap3 08:19 Drug: Rocephin (cefTRIAXone) 1 grams Route: IV; Rate: calculated rate; Site: left ap3 antecubital; 08:32 Follow up: Response: No adverse reaction; IV Status: Completed infusion ap3 Disposition: 09:10 Co-signature as Attending Physician, Mir Saxena MD I agree with the assessment and rn plan of care. Attestation: The patient's history, exam findings, diagnostics, and a summary of any interventions or procedures was reviewed in detail with Jeb WORKMAN. Disposition Summary: 12/12/20 08:19 Discharge Ordered Location: Home cp Problem: new cp Symptoms: have improved cp Condition: Stable cp Diagnosis - UTI/ Urinary tract infection, site not specified cp - Weakness - general cp - Nausea with vomiting, unspecified cp Followup: cp - With: Private Physician - When: 2 - 3 days - Reason: Recheck today's complaints Discharge Instructions: - Discharge Summary Sheet cp - Nausea and Vomiting, Adult cp - Urinary Tract Infection, Adult cp - Weakness cp Forms: - Medication Reconciliation Form cp - Thank You Letter cp - Antibiotic Education cp - Prescription Opioid Use cp Prescriptions: - Augmentin 875-125 mg Oral Tablet - take 1 tablet by ORAL route every 12 hours for 7 days; 14 tablet; Refills: 0, cp Product Selection Permitted - Zofran 4 mg Oral Tablet - take 1 tablet by ORAL route every 12 hours As needed; 6 tablet; Refills: 0, cp Product Selection Permitted Signatures: Dispatcher [employer] EDJeb Gu MD MD cha Nieto, Roman, MD MD rn Page, Corey, PA PA cp Rima Mendez RN RN ap3 Duane Crisostomo RN wg Corado, Bella RN RN bc5
--- NOTE | 2020-12-12 08:20 | ER ---
Nurse's Notes [facility] Name: Perlita Zapata Age: 65 yrs Sex: Female : 1955 Arrival Date: 12/12/2020 Time: 06:18 Bed 11 Private MD: Diagnosis: UTI/ Urinary tract infection, site not specified;Weakness-general;Nausea with vomiting, unspecified Presentation: 12/12 06:21 Chief complaint: Patient states: Pt c/o weakness and nausea, sudden onset while bc5 visiting grandson in ED. Dexi 102. A\T\O x 3, RR is even and unlabored, speaking in clear and complete sentences at this time. Coronavirus screen: Vaccine status: Patient reports receiving the 2nd dose of the covid vaccine. Ebola Screen: Patient negative for fever greater than or equal to 101.5 degrees Fahrenheit, and additional compatible Ebola Virus Disease symptoms Patient denies exposure to infectious person. Patient denies travel to an Ebola-affected area in the 21 days before illness onset. No symptoms or risks identified at this time. Initial Sepsis Screen: Does the patient meet any 2 criteria? No. Patient's initial sepsis screen is negative. Does the patient have a suspected source of infection? No. Patient's initial sepsis screen is negative. Risk Assessment: Do you want to hurt yourself or someone else? Patient reports no desire to harm self or others. Onset of symptoms was December 12, 2020 at 06:15. 06:21 Method Of Arrival: Wheelchair bc5 06:21 Acuity: PAULA 4 bc5 Triage Assessment: 06:26 General: Appears in no apparent distress. comfortable, Behavior is calm, cooperative. bc5 Pain: Denies pain. GI: Reports nausea. Historical: - Allergies: 06:25 Codeine; bc5 06:25 shrimp; bc5 - Immunization history:: Adult Immunizations up to date, . - Social history:: Smoking status: Patient denies any tobacco usage or history of. Screenin:26 Abuse screen: Denies threats or abuse. Denies injuries from another. Nutritional bc5 screening: No deficits noted. Tuberculosis screening: No symptoms or risk factors identified. Fall Risk None identified. No fall in past 12 months (0 pts). No secondary diagnosis (0 pts). No IV (0 pts). Ambulatory Aid- None/Bed Rest/Nurse Assist (0 pts). Gait- Normal/Bed Rest/Wheelchair (0 pts) Mental Status- Oriented to own ability (0 pts). Total Benedict Fall Scale indicates No Risk (0-24 pts). Assessment: 06:27 GI: Abdomen is round non-distended. bc5 07:48 Reassessment: Patient and/or family updated on plan of care and expected duration. Pain ap3 level reassessed. Patient is alert, oriented x 3, equal unlabored respirations, skin warm/dry/pink. Patient states symptoms have improved. Vital Signs: 06:21 BP 116 / 62; Pulse 66; Resp 15; Temp 97.6(T); Pulse Ox 98% on R/A; Weight 76.66 kg; bc5 Height 4 ft. 11 in. (149.86 cm) (R); Pain 0/10; 08:19 BP 100 / 64; Pulse 68; Resp 16; Pulse Ox 100% on R/A; Pain 0/10; ap3 06:21 Body Mass Index 34.13 (76.66 kg, 149.86 cm) 5 ED Course: 06:18 Patient arrived in ED. wm 06:21 Kamryn Granado, RN is Primary Nurse. bc5 06:22 Jeb Still PA is PHCP. cp 06:22 Jeb Nance MD is Attending Physician. cp 06:25 Triage completed. bc5 06:26 Arm band placed on left wrist. bc5 06:27 Patient has correct armband on for positive identification. Bed in low position. Call [facility] light in reach. Side rails up X2. 06:27 No provider procedures requiring assistance completed. bc5 06:48 EKG done, by ED staff, reviewed by Mir Saxena MD. dc2 06:53 financial adviser on. Pulse ox on. NIBP on. dc2 06:55 Attending Physician role handed off by Jeb Nance MD cp 06:55 Mir Saxena MD is Attending Physician. cp 07:02 Patient is placed in psych hold. dc2 07:07 Basic Metabolic Panel Sent. wg 07:07 CBC with Diff Sent. wg 07:07 LFT's Sent. wg 07:45 CT Head Brain wo Cont In Process Unspecified. EDMS 07:[address] back [address]. ap3 08:32 IV discontinued, intact, bleeding controlled, No redness/swelling at site. Pressure ap3 dressing applied. Administered Medications: 07:07 Drug: Zofran (Ondansetron) 4 mg Route: IVP; Infused Over: 2 mins; Site: left wg antecubital; 08:20 Follow up: Response: No adverse reaction; Nausea is decreased ap3 07:07 Drug: Pepcid (famotidine) 20 mg Route: IVP; Infused Over: 2 mins; Site: right wg antecubital; 08:20 Follow up: Response: No adverse reaction ap3 07:07 Drug: NS 0.9% 500 ml Route: IV; Rate: bolus; Infused Over: 15 mins; Site: left wg antecubital; Delivery: Primary tubing; 08:19 Follow up: IV Status: Completed infusion; IV Intake: 500ml ap3 08:19 Drug: Rocephin (cefTRIAXone) 1 grams Route: IV; Rate: calculated rate; Site: left ap3 antecubital; 08:32 Follow up: Response: No adverse reaction; IV Status: Completed infusion ap3 Intake: 08:19 IV: 500ml; Total: 500ml. ap3 Outcome: 08:19 Discharge ordered by MD. cp 08:31 Discharged to home ambulatory, with family. ap3 08:31 Condition: good 08:31 Discharge instructions given to patient, family, Instructed on discharge instructions, follow up and referral plans. medication usage, Demonstrated understanding of instructions, follow-up care, medications, Prescriptions given X 2. 08:35 Patient left the ED. ap3 Signatures: Dispatcher [employer] EDMS Jeb Still PA PA cp Prokisch, Amanda, RN RN ap3 Yuly Cochran Liam, RN Kamryn Granado RN RN bc5 Jammie Altman RN RN dc2
[2020-12-12] MEDS ORDERED: CEFTRIAXONE/SWI 1gm 1 GM/10 ML SYR ONE (08:35)
[2020-12-12 08:47] VITALS: TEMP 97.6
[2020-12-12 08:48] VITALS: BP 100/64; O2SAT 100
--- NOTE | 2020-12-12 13:13 | EKG ---
Test Date: 2020-12-12 Test Time: 06:48:19 Product Sales Engineer: LILLIAM MEASUREMENT RESULTS: Intervals: Rate: 60 PA: 130 QRSD: 118 QT: 484 QTc: 484 Amity: P: 52 PA: 130 QRS: 31 T: 32 INTERPRETIVE STATEMENTS: Normal sinus rhythm Low voltage QRS Right bundle branch block Abnormal ECG Compared to ECG 05/21/2016 21:03:18 No significant changes Electronically Signed On 12-12-20 13:12:23 CDT by Jaxson Stuart
== END 2020-12-12 08:35 | disposition home or self-care (01) ==
LOC: ER 06:09
DX: N39.0 Urinary tract infection, site not specified (principal); R53.1 Weakness; Z88.5 Allergy status to narcotic agent; Z91.013 Allergy to seafood
CPT/HCPCS: 93005; 87088; 85025; 87086; 80048; 36415; 83735; 85610; 82947; 80076; 84484; 70450; 99285; J0696; J7040; J2405; 81003; 81015

== ENCOUNTER 2021-06-10 21:25 | Emergency (ER) | payer OTHER ==
--- OUTSIDE RECORDS SUMMARY | 2021-06-10 21:28 | XMS REPORT | Continuity of Care Document ---
:1955 Author Organization [facility] t Address [address] [place] [address] Care Team Providers Name Role Phone Judy Acosta Attending Clinician Unavailable Problems This patient has no known problems. Allergies, Adverse Reactions, Alerts Allergy Allergy Status Severity Reaction(s) Onset Inactive Treating Comm ents Source Name Type Date Date Clinician codeine Adverse Active heart [facility] Reaction racing; felt Dinorah kes - like she was Aristides deisy going to l pass out; [facility] shellfis Adverse Active [facility] Reaction hands/feet; Saritha es - itching ; [facility]oria rash l [facility] Medications Ordered Filled Start Stop Current Ordering Indication Dosage Frequency Signature Comments Components Source Medication Medication Date Date Medication? Clinician (SIG) Name Name Multivitami Multivitami Yes [facility] as [facility] Adult n Adult Ac[facility] directed [facility] Glucosamine Glucosamine Yes Weston [address] [facility] Complex/Vit Complex/Vit [facility]osta [facility] D3 [facility] D3 [facility] Fluticasone Fluticasone Yes Weston [address] [facility] Propionate Propionate Acosta in each [facility] Vitamin B12 Vitamin B12 Yes Weston Liquid--[address] [facility] Acosta drop (1 [facility] mL[facility] Procedures This patient has no known procedures. Encounters Start End Encounter Admission Attending Care Care Encounter Source Date/Time Date/Time Type Type Clinicians Facility Department ID 2021-04-25 Outpatient Acosta, [facility] 2021-04-18 Outpatient Acosta, [facility] 14:38:44 [facility] 2021-04-18 Outpatient Acosta, [facility] 13:42:13 [facility] [id number] [facility] 2021-04-18 Outpatient Acosta, [facility] 13:12:40 [facility] [id number] [facility] 2021-04-18 Outpatient Acosta, [facility] 12[facility]54:06 [facility] [id number] [facility] 2021-04-18 Outpatient Acosta, [facility] 12:37:44 [facility] [address] [facility] 2021-04-18 Outpatient Acosta, [facility] 12:15:54 [facility] [id number] [facility] 2021-04-18 Outpatient Acosta, [facility] 12:09:57 [facility] [id number] [facility] 2021-04-18 Outpatient Acosta, [facility] 11:39:22 [facility] [id number] [facility] 2021-04-16 2021-04-16 ambulatory [facility] [id number] [facility] 2021-04-16 2021-04-16 ambulatory [facility] [id number] [facility] 2021-01-18 2021-01-18 Outpatient [facility] [id number] [facility] 2021-01-12 2021-01-12 Outpatient [facility] [id number] [facility] 2021-01-11 2021-01-11 Outpatient [facility] [id number] [facility] 2020-11-20 2020-11-20 Outpatient [facility] [id number] [facility] 2020-11-16 2020-11-16 Outpatient [facility] [id number] [facility] 2020-11-15 2020-11-15 Outpatient [facility] [id number] [facility] 2020-11-14 2020-11-14 Outpatient [facility] [id number] [facility] 2020-11-14 2020-11-14 Outpatient [facility] [id number] [facility] 2020-07-12 2020-07-12 Outpatient [facility] [id number] [facility] 2020-05-30 2020-05-30 Outpatient [facility] [id number] [facility] 2020-05-13 2020-05-13 Outpatient [facility] [id number] [facility] 2020-03-15 2020-03-15 Outpatient [facility] [id number] [facility] 2020-03-03 2020-03-03 Outpatient [facility] [id number] [facility] 2020-02-24 2020-02-24 [facility] [id number] [facility] 2019-11-11 2019-11-11 [facility] [id number] [facility] 10:04:00 10:04:00 [facility] Outpat[facility] Clin[facility] 2019-11-11 2019-11-11 [facility] [id number] [facility] 09:30:00 09:30:00 [facility] Medicine Outpati [facility] Clinics 2019-10-06 2019-10-06 [facility] [id number] 14:20:00 14:20:00 [facility] Medicine Outpati ent Clinics 2019-10-06 2019-10-06 [facility] [id number] [facility] 08:13:00 08:13:00 t [facility] Medicine Outpati [facility] Clinics 2019-10-04 2019-10-04 [facility] [id number] 14:27:00 14:27:00 t [facility] Outpati ent Clinics 2019-06-28 2019-06-28 [facility] [id number] [facility] 22:08:00 22:08:00 t [facility] Outpati ent Clinics 2019-06-28 2019-06-28 [facility] [id number] 16:15:00 16:15:00 t [facility] Outpat[facility] ent Clinics 2019-06-28 2019-06-28 [facility] [id number] [facility] 10:28:00 10:28:00 [facility] 2019-02-25 2019-02-25 Outpatient Antony Nicolas [id number] [facility] 13:00:00 13:00:00 [facility] 2018-07-31 2018-07-31 Outpatient Antony Nicolas [id number] [facility] 14:40:00 14:40:00 [facility] 2018-07-15 2018-07-15 Outpatient Antony Nicolas [id number] [facility] 10:40:00 10:40:00 [facility] ent Clinics Results This patient has no known results.
--- NOTE | 2021-06-11 01:28 | EDPHYS ---
Physician Documentation [facility] Name: Perlita Zapata Age: 65 yrs Sex: Female : 1955 Arrival Date: 06/10/2021 Time: 21:28 Bed Treatment Private MD: ED Physician Chaz Marx HPI: 06/11 01:19 This 65 yrs old Female presents to ER via Wheelchair with complaints of Fall ms3 Injury, Back Injury, Hip Injury. 01:19 Details of fall: The patient fell from a height, from a ladder. Onset: The ms3 symptoms/episode began/occurred acutely, 1.5 hour(s) ago. Associated injuries: The patient sustained right hip. Severity of symptoms: At their worst the symptoms were severe, in the emergency department the symptoms have improved. 65-year-old female with no past medical history presents status post missing the last step while coming down a ladder causing her to fall. Patient states she initially scraped her back on a shelf and then fell onto her right side on the floor. Patient states this occurred approximately 1/2 hours prior to arrival. Patient states the pain becomes worse when attempting to ambulate. Patient states her pain is an 8/10 and described as burning. Patient denies alleviating factors.. Historical: - Allergies: 06/10 21:40 Codeine; ld1 21:40 shrimp; ld1 - Home Meds: 21:40 None [Active]; ld1 - PMHx: 21:40 None; ld1 - PSHx: 21:40 Cholecystectomy; ld1 - Immunization history:: Adult Immunizations up to date, Client reports receiving the 2nd dose of the Covid vaccine. - Social history:: Smoking status: Patient denies any tobacco usage or history of. Patient/guardian denies using alcohol. ROS: 06/11 01:19 Constitutional: Negative for fever, and chills. Eyes: Negative for injury, pain, ms3 redness, and discharge, Neck: Negative for injury, pain, and swelling, Cardiovascular: Negative for chest pain, and palpitations. Respiratory: Negative for shortness of breath, cough, wheezing, and pleuritic chest pain, Abdomen/GI: Negative for abdominal pain, nausea, vomiting, diarrhea, and constipation, Neuro: Negative for headache, weakness, numbness, tingling. MS/extremity: Positive for injury or acute deformity, pain, tenderness. Skin: Positive for abrasion(s). Exam: 01:22 Constitutional: This is a well developed, well nourished patient who is awake, alert, ms3 and in no acute distress. Head/Face: Normocephalic, atraumatic. Neck: Trachea midline, no cervical lymphadenopathy. Supple, full range of motion without nuchal rigidity, or vertebral point tenderness. No Meningismus. Chest/axilla: Normal chest wall appearance and motion. Nontender with no deformity. Cardiovascular: Regular rate and rhythm with a normal S1 and S2. No gallops, murmurs, or rubs. Normal PMI, no JVD. No pulse deficits. Respiratory: Lungs have equal breath sounds bilaterally, clear to auscultation and percussion. No rales, rhonchi or wheezes noted. No increased work of breathing, no retractions or nasal flaring. Abdomen/GI: Soft, non-tender, with normal bowel sounds. No distension or tympany. No guarding or rebound. No evidence of tenderness throughout. 01:22 Musculoskeletal/extremity: Extremities: noted in the right hip: pain, tenderness. 01:22 Skin: injury, abrasion(s), moderate sized abrasion noted. Vital Signs: 06/10 21:38 BP 155 / 96; Pulse 75; Resp 18; Temp 98.8(TE); Pulse Ox 100% on R/A; Weight 78.02 kg; ld1 Height 4 ft. 11 in. (149.86 cm); Pain 8/10; 06/11 00:00 BP 152 / 94; Pulse 78; Resp 18; Pulse Ox 99% on R/A; vc1 01:30 BP 158 / 90; Pulse 84; Resp 18; Pulse Ox 100% ; vc1 03:00 BP 160 / 88; Pulse 76; Resp 18; Pulse Ox 99% ; vc1 06/10 21:38 Body Mass Index 34.74 (78.02 kg, 149.86 cm) ld1 MDM: 06/10 21:48 Patient medically screened. ms3 06/11 01:22 Differential diagnosis: abrasion, contusion, fracture, sprain, strain. Data reviewed: ms3 vital signs, nurses notes, radiologic studies. Data interpreted: Pulse oximetry: on room air is 100 %. Interpretation: normal. 01:25 Counseling: I had a detailed discussion with the patient and/or guardian regarding: the ms3 historical points, exam findings, and any diagnostic results supporting the discharge/admit diagnosis, radiology results, the need to transfer to another facility, [facility] does not immediately have the required specialist. ED course: Discussed with patient and her necessity for transfer as ortho is not commissioner of relocation services today. They understand and agree with plan for transfer.. 06/11 01:06 Order name: CBC with Diff ms3 06/11 01:06 Order name: BMP ms3 06/10 21:49 Order name: Hip Right 2 View XRAY ms3 06/11 01:11 Order name: COVID-19 SARS RT PCR (Document "Date of Onset" if Symptomatic) ms3 06/11 01:11 Order name: SARS-COV-2 RT PCR EDMS 06/11 00:12 Order name: Hip Right Wo Con EDMS Administered Medications: No medications were administered Disposition Summary: 06/11/21 01:27 Transfer Ordered Transfer Location: [facility] ms3 Reason: Higher level of care ms3 Condition: Stable ms3 Problem: new ms3 Symptoms: are unchanged ms3 Accepting Physician: Marvin(06/11/21 03:10) vc1 Diagnosis - Mildly impacted right femoral neck fracture ms3 - fall ms3 - abrasion ms3 Forms: - Medication Reconciliation Form ms3 - SBAR form ms3 Signatures: Dispatcher [employer] EDMS Chaz Marx DO DO ms3 Alicia Saucedo, RN RN ld1 Laxmi Bell RN RN vc1 Corrections: (The following items were deleted from the chart) 00:12 00:08 CT RIGHT HIP WO CONTRAST ordered. EDMS EDMS 01:30 01:27 . ms3 ms3 03:10 01:30 Marvin [email or web address] vc1
--- NOTE | 2021-06-11 01:28 | ER ---
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 I hit my back on a shelf in the corner, then I fell onto the floor on my right hip. Coronavirus screen: Client presents with at least one sign or symptom that may indicate coronavirus-19. At this time, the client does not indicate any symptoms associated with coronavirus-19. Ebola Screen: No symptoms or risks identified at this time. Initial Sepsis Screen: Does the patient meet any 2 criteria? No. Patient's initial sepsis screen is negative. Does the patient have a suspected source of infection? No. Patient's initial sepsis screen is negative. Risk Assessment: Do you want to hurt yourself or someone else? Patient reports no desire to harm self or others. Onset of symptoms was June 10, 2021. 21:38 Method Of Arrival: Wheelchair ld1 21:38 Acuity: PAULA 3 ld1 Triage Assessment: 21:40 General: Appears in no apparent distress. comfortable, Behavior is calm, cooperative, ld1 appropriate for age. Pain: Complains of pain in right hip Pain does not radiate. Pain currently is 8 out of 10 on a pain scale. Quality of pain is described as throbbing, Pain began suddenly, Is continuous. Neuro: Level of Consciousness is awake, alert, obeys commands, Oriented to person, place, time, situation, Appropriate for age. Cardiovascular: Capillary refill < 3 seconds Patient's skin is warm and dry. Respiratory: Airway is patent Respiratory effort is even, unlabored. GI: Abdomen is flat, non-distended. Derm:. Injury Description: Laceration sustained to back. Historical: - Allergies: 21:40 Codeine; ld1 21:40 shrimp; ld1 - Home Meds: 21:40 None [Active]; ld1 - PMHx: 21:40 None; ld1 - PSHx: 21:40 Cholecystectomy; ld1 - Immunization history:: Adult Immunizations up to date, Client reports receiving the 2nd dose of the Covid vaccine. - Social history:: Smoking status: Patient denies any tobacco usage or history of. Patient/guardian denies using alcohol. Screenin/21 00:05 Abuse screen: Denies threats or abuse. Nutritional screening: No deficits noted. vc1 Tuberculosis screening: No symptoms or risk factors identified. Fall Risk None identified. Assessment: 04:04 Reassessment: Took over care of patient. vc1 Vital Signs: 06/10 21:38 BP 155 / 96; Pulse 75; Resp 18; Temp 98.8(TE); Pulse Ox 100% on R/A; Weight 78.02 kg; ld1 Height 4 ft. 11 in. (149.86 cm); Pain 8/10; 06/11 00:00 BP 152 / 94; Pulse 78; Resp 18; Pulse Ox 99% on R/A; vc1 01:30 BP 158 / 90; Pulse 84; Resp 18; Pulse Ox 100% ; vc1 03:00 BP 160 / 88; Pulse 76; Resp 18; Pulse Ox 99% ; vc1 06/10 21:38 Body Mass Index 34.74 (78.02 kg, 149.86 cm) ld1 ED Course: 06/10 21:28 Patient arrived in ED. jj6 21:40 Triage completed. ld1 21:40 Arm band placed on right wrist. ld1 21:48 Chaz Marx DO is Attending Physician. ms3 22:56 Hip Right 2 View XRAY In Process Unspecified. EDMS 06/11 00:00 Patient has correct armband on for positive identification. vc1 00:32 Hip Right Wo Con In Process Unspecified. EDMS 02:15 Inserted saline lock: 20 gauge in left antecubital area, using aseptic technique. Blood vc1 collected. 02:19 BMP Sent. cs9 02:19 CBC with Diff Sent. cs9 02:19 COVID-19 SARS RT PCR (Document "Date of Onset" if Symptomatic) Sent. cs9 03:10 Laxmi Bell, CURTIS is Primary Nurse. vc1 03:10 No provider procedures requiring assistance completed. vc1 03:10 Patient transferred, IV remains in place. vc1 Administered Medications: No medications were administered Outcome: 01:27 ER care complete, transfer ordered by MD. ms3 02:00 Instructed on the need for transfer. vc1 03:10 Patient left the ED. vc1 03:10 Transferred by ground EMS to [facility], Transfer form completed. X-rays sent vc1 w/ patient. 03:10 Condition: good Signatures: Dispatcher [employer] EDMS Chaz Marx, DO ms3 Alicia Saucedo, RN RN ld1 Amada Maloney 9 Lita Thomas6 Laxmi Bell RN RN vc1
[2021-06-11 02:25] LABS: Absolute Lymphocytes (CBC) 3.5 K/uL (0.7-4.9); Hematocrit 41.2 % (36.0-45.0); Lymphocytes % 27.1 % (15.3-44.8); MPV 7.5 fL (7.6-11.3); RBC Red Blood Cell Count 4.66 M/uL (3.86-4.86)
[2021-06-11 02:43] LABS: Potassium 3.8 mmol/L (3.5-5.1)
[2021-06-11 05:45] VITALS: BP 155/96; TEMP 98.8; O2SAT 100
--- NOTE | 2021-06-11 08:20 | EKG ---
Test Date: 2021-06-10 Test Time: 21:48:00 Absorption Plant Operator Helper: MARTÍNEZ MEASUREMENT RESULTS: Intervals: Rate: 118 MD: 126 QRSD: 66 QT: 316 QTc: 442 [place]: P: 74 MD: 126 QRS: 80 T: 265 INTERPRETIVE STATEMENTS: Sinus tachycardia Biatrial enlargement T wave abnormality, consider inferior ischemia T wave abnormality, consider anterolateral ischemia Abnormal ECG Compared to ECG 12/12/2020 06:48:19 Atrial abnormality now present T-wave abnormality now present Possible ischemia now present Sinus rhythm no longer present Right bundle-branch block no longer present Electronically Signed On 06-11-21 08:19:28 CDT by Jaxson Stuart
--- NOTE | 2021-06-11 13:07 | RAD REPORT ---
EXAM DESCRIPTION: RAD - Hip Right 2 View - 06/10/2021 10:57 pm CLINICAL HISTORY: 65 years Female PAIN. Hip Right 2 View TECHNIQUE: Two views of the right hip are provided. COMPARISON: No prior exams provided for comparison . FINDINGS: It is difficult to exclude a minimally impacted, incomplete, transcervical fracture of the right femoral neck due to patient size and positioning. No dislocation. No other acute findings. IMPRESSION: Cannot completely exclude a minimally impacted, and complete transcervical fracture of t he right femoral neck. Consider further evaluation with CT scan. Electronically signed by: Miranda Proctor MD 06/10/2021 11:42 PM CDT Due to temporary technical issues with the PACS/Fluency reporting system, reports are being signed by the in house radiologist without review as a courtesy to ensure prompt reporting. The interpreting r adiologist is fully responsible for the content of the report.
--- NOTE | 2021-06-11 13:16 | RAD REPORT ---
EXAM DESCRIPTION: CT - Hip Right Wo Con - 06/11/2021 4:34 am CLINICAL HISTORY: 65 years, Female, R?O FX COMPARISON: None. TECHNIQUE: Multiple transaxial tomograms of right hip were obtained utilizing 2 mm slice thickness a t 2 mm interval reconstruction without the administration of IV contrast. 2-D multiplanar reformats i n sagittal and coronal plane were generated and reviewed. This exam was performed according to our departmental dose-optimization protocol, which includes auto mated exposure control, adjustment of the mA and/or kV according to patient size and/or use of iterat jermaine reconstruction technique. FINDINGS: The bone windows demonstrated presence of a mildly impacted right femoral neck fracture be st demonstrated on coronal images 45-55. There is no evidence for significant joint effusion. The gre ater trochanter and lesser trochanter demonstrate to be unremarkable. Right hemipelvis/superior and i nferior pubic rami demonstrate to be unremarkable. Visualized portions of the right hemipelvis demons trate to be normal. IMPRESSION: Mildly impacted right femoral neck fracture. Electronically signed by: Steffen Laird MD 06/11/2021 12:47 AM CDT Due to temporary technical issues with the PACS/Fluency reporting system, reports are being signed by the in house radiologist without review as a courtesy to ensure prompt reporting. The interpreting r adiologist is fully responsible for the content of the report.
== END 2021-06-11 03:10 | disposition short-term general hospital (02) ==
LOC: ER 21:25
DX: S72.001A Fracture of unspecified part of neck of right femur, initial encounter for closed fracture (principal); S70.211A Abrasion, right hip, initial encounter; W11.XXXA Fall on and from ladder, initial encounter; Z20.822 Contact with and (suspected) exposure to COVID-19; Z88.5 Allergy status to narcotic agent; Z91.013 Allergy to seafood
CPT/HCPCS: 93005; 85025; 80048; 36415; 73700; 73502; 99285; U0003

== ENCOUNTER 2022-09-14 15:22 | Emergency (ER) | payer OTHER ==
--- OUTSIDE RECORDS SUMMARY | 2022-09-14 15:28 | XMS REPORT | Continuity of Care Document ---
:1955 Author Organization [facility] t Address [address] [place] [address] Care Team Providers Name Role Phone No MD, Pcp Primary Care Physician Unavailable Weston Acosta Attending Clinician Unavailable Wesly Morel MD Attending Clinician Robbin Bower Attending Clinician Padmini Mcintyre Attending Clinician DIDIER BARR Attending Clinician Unavailable Didier Barr Attending Clinician Wesly Morel Attending Clinician [phone] WESLY MOREL Admitting Clinician Unavailable Wesly Morel Admitting Clinician [phone] Payers Payer Name Policy Type Policy Number Effective Date Expiration Date S [place] [facility] 53 [id number] 2021 [facility] ADVANTAGE 00:00:00 - [facility] WELLMED [id number] 2021 00:00:00 AARP Medicare C1 [id number] [facility] Advantage [facility] Medicare C1 [id number] [facility] Advantage [facility] AAR Medicare C1 [id number] [facility] Advantage [facility] Problems Condition Condition Condition Status Onset Resolution Last Treating Co mments Source Name Details Category Date Date Treatment Clinician Date TRANSCERVI TRANSCERV Diagnosis Active 2021-06-27 Memoria HOWARD FX OF ICAL FX OF 06-10 21:47:00 l RIGHT RIGHT 00:00: Eric FEMORAL FEMORAL 00 NECK NECK Active 06/10/2021 [facility] [id number] PAD Problem Common (periphera Spirit l artery - CHI disease) [facility] [id number] Dizziness Problem Com mon [facility] [id number] Allergic Problem Commo n rhinitis, Spirit unspecifie - CHI d [facility] y, Medical unspecifie Center d trigger [id number] Hyperchole Problem Com mon sterolemia [facility] [id number] Joint Problem Common swelling [facility] [id number] Prediabete Problem Co mmon s Spirit [facility] [id number] Mixed Problem Common hyperlipid [facility] emia [facility] [id number] Swelling Problem Comm on of right Spirit lower [facility] extremity [facility] [id number] Other Problem Common chronic [facility] pain [facility] [id number] Morbid Problem Common (severe) Spirit obesity - [facility] due to [facility] [id number] Right hip Problem Co mmon [address] pain [facility] [id number] [place] [id number] thigh pain [facility] [id number] Pain in Problem Common right knee [facility] [id number] Acute Problem Commo n 9105 right Spirit ankle pain [facility] Impaired Elevated Problem Commo n fasting fasting [facility] glycaemia glucose [facility] [id number] Body mass Problem Com mon index Spirit (BMI) - [facility] 35.0-35.9, [facility] Osteoarthr Osteoarth Problem Active 2021-06-18 Memoria itis ritis 22:03:50 l (disorder) (disorder) He rmann Active Problem 06/18/2021 [facility] Vitamin D Vitamin D Problem Active 2021-06-18 Memoria deficiency deficiency 22:03:50 l (disorder) (disorder) He rmann Active Problem 06/18/2021 [facility] Allergies, Adverse Reactions, Alerts Allergy Allergy Status Severity Reaction(s) Onset Inactive Treating Comm ents Source Name Type Date Date Clinician elizabeth johnson Active Memori a h h l [place] codeine codeine Active Memoria l Eric Shellfis Shellfis Active Swelling in C ommon h h hands/feet; Spiri t itching ; - CHI rash [facility] Codeine Codeine Active heart Common racing; felt Spir it like she [facility] Social History Social Habit Start Date Stop Date Quantity Comments Source History of Tobacco Common [facility] - Use [facility] Sex Assigned At [facility] bandar - [facility] Exposure to 2021-12-17 2021-12-27 Not sure [facility] SARS-CoV-2 (event) 00:00:00 11:47:00 Social History 2021-06-14 2021-06-14 [facility] 20:24:18 20:24:18 Smoking Status Start Date Stop Date Source Tobacco smoking consumption [facility] unknown Never Smoker [facility] Medications Ordered Filled Start Stop Current Ordering Indication Dosage Frequency Signature Comments Components Source Medication Medication Date Date Medication? Clinician (SIG) Name Name methylPREDN methylPREDN 2021- QD methylPRED ISolone 4 ISolone 4 08-16 NISolone 4 MG MG 00:00: 00:00 MG 00 :00 Lovenox No Notes: Memoria - (Same as: l 21:30: Lovenox) sennosides, Yes 17.2 mg = M emoria ALF 8.6 MG 06-16 2 tab, PO, l Oral Tablet 17:24: Bedtime, X 7 day, # 14 tab, 0 Refill(s), Pharmacy: [facility] [id number], 149.86, cm, 06/12/21 3:14:00 CDT, Height, 77, kg, 06/12/21 3:14:00 CDT, Weight acetaminoph Yes 1,000 mg = Memoria en 500 mg 3-26 2 tab, PO, l oral 17:23: Q8H-06, X Eric tablet. 00 7 day, # 42 tab, 0 Refill(s), Pharmacy: [facility] [id number], 149.86, cm, 06/12/21 3:14:00 CDT, Height, 77, kg, 06/12/21 3:14:00 CDT, Weight enoxaparin Yes 40 mg = Aristides deisy 40 mg/0.4 3-26 0.4 mL, l mL 17:23: SUB-Q, Eric subcutaneou 00 [id number], s solution X 17 day, # 6.8 mL, 0 Refill(s), Pharmacy: [facility] [id number], 149.86, cm, 06/12/21 3:14:00 CDT, Height, 77, kg, 06/12/21 3:14:00 CDT, Weight remove No 1 patch, Memoria patch 324 Route: l 19:00: TOP, Drug Eric 00 form: ERFILM, Q72H, Start date: 06/14/21 14:00:00 CDT, Duration: 1 doses or times, Stop date: 06/14/21 14:00:00 CDT, 0 Fentanyl 2021-0 No 50 Memoria 3-23 microgram, l 17:03: Route: IV, Vernon 00 ONCE, Dosing Weight 77, kg, Start date: 06/13/21 12:03:00 CDT, Stop date: 06/13/21 12:03:00 CDT Lidocaine 2021-0 No 10 mL, Memori a Hydrochlori 3-23 Route: l de 10 MG/ML 16:56: INTRADERM, Vernon Injectable 00 Dosing Solution Weight 77, kg, ONCE, Start date: 06/13/21 11:56:00 CDT, Stop date: 06/13/21 11:56:00 CDT Fentanyl 2021-0 No 50 Memoria 3-23 microgram, l 16:56: Route: IV, Vernon 00 ONCE, Dosing Weight 77, kg, Start date: 06/13/21 11:56:00 CDT, Stop date: 06/13/21 11:56:00 CDT Vitamin D3 No Notes: Memor ia 1000 intl 3- Same as : l units oral 15:25: Vitamin D3 H ermann tablet 00 Vitamin D3 No Notes: Memor ia 1000 intl 3-23 Same as : l units oral 14:00: Vitamin D3 H ermann tablet 00 NS 1,000 mL No 1,000 mL, M emoria 06-13 Rate: 100 l 05:01: ml/hr, Infuse over: 10 hr, Route: IV, Dosing Weight 77 kg, Total Volume: 1,000, Start date: 06/13/21 0:01:00 CDT, Duration: 1 day, Stop date: 06/14/21 0:00:00 CDT, BSA: 1.82 m2, 0 One A Day Yes 1 tab, PO, Me moria Women's 3-22 Daily, 0 l Complete 15:19: Refill(s) Herm darlene 00 Vitamin B12 Yes 5,000 Memor ia Methylcobal 3-22 microgram l amador 5000 15:18: = 1 tab, Herm darlene mcg 00 SL, Daily, sublingual 0 tablet Refill(s) Vitamin D3 Yes 25 Memoria 1000 intl 3-22 microgram l units oral 15:18: = 1 tab, Her veloz tablet 00 PO, Daily, # 30 tab, 0 Refill(s) Lidocaine No Notes: Memori a 3-22 (Same as: l 14:59: Xylocaine) POLYETHYLEN No Notes: Aristides deisy E GLYCOL 3-22 Dissolve l 3350 14:00: in 8 oz of water or juice. (Same as: Miralax) Iohexol No 80 mL, Memoria 22 Route: l 05:06: IVP, Drug Form: SOLN, kg, ONCALL, STAT, Start date: 06/12/21 0:06:00 CDT, Duration: 1 doses or times, Dose = 2.2ml/kg, Max dose = 100ml -- "To be infused by Radiology Staff ONLY" heparin No Notes: Memoria 3-22 porcine l 04:00: heparin Benzocaine No Notes: Memor ia 10 MG - (Same as: l Lozenge 03:52: Chlorasept Herm darlene 00 ic cecilia) Benzocaine No 1 lozengeJudy emoria 15 MG / 06-12 Route: l Menthol 3.6 03:48: MUCOUS Herm darlene MG Lozenge 00 MEM, Drug [Cepacol Form: CECILIA, Sore Throat kg, Q2H, Pain Relief PRN Sore 15/3.6] Throat, Start date: 06/11/21 22:48:00 CDT, Duration: 30 day, Stop date: 07/11/21 22:47:00 CDT gabapentin No Notes: Memor ia - (Same as: l 02:00: Neurontin) Zyrtec No Notes: Memoria - (Same As: l 00:53: Zyrtec) Oxycodone No Notes: Memori a Hydrochlori - (Same as: l de 5 MG 22:12: Roxicodone Herm darlene Oral Tablet ) Cefazolin No Notes: Memori a 3-21 (Same as l 22:00: Ancef) ondansetron No Route: IV, Memoria (ANES) 3- Drug form: l 21:21: INJ, ONCE, Stop date: 06/11/21 16:21:00 CDT glycopyrrol No Route: IV, Memoria ate (ANES) 06-11 Drug form: l 21:21: INJ, ONCE, Stop date: 06/11/21 16:21:00 CDT neostigmine No Route: IV, Memoria (ANES) 3- Drug form: l 21:21: INJ, ONCE, Stop date: 06/11/21 16:21:00 CDT hydromorpho No Route: IV, Memoria ne (ANES) 06-11 Drug form: l 21:21: INJ, ONCE, Stop date: 06/11/21 16:21:00 CDT rocuronium No Route: IV, M emoria (ANES) 06-11 Drug form: l 20:41: INJ, ONCE, Stop date: 06/11/21 15:41:00 CDT dexamethaso No Route: IV, Memoria ne (ANES) 06-11 Drug form: l 20:31: INJ, ONCE, Stop date: 06/11/21 15:31:00 CDT ceFAZolin No Route: IV, Me moria (ANES) 06-11 Drug form: l 20:31: INJ, ONCE, Stop date: 06/11/21 15:31:00 CDT lidocaine No Route: IV, Me moria (ANES) 06-11 Drug form: l 20:26: INJ, ONCE, Stop date: 06/11/21 15:26:00 CDT propofol No Route: IV, Mem oria (ANES) 06-11 Drug form: l 20:26: INJ, ONCE, Stop date: 06/11/21 15:26:00 CDT rocuronium No Route: IV, M emoria (ANES) 06-11 Drug form: l 20:26: INJ, ONCE, Stop date: 06/11/21 15:26:00 CDT fentaNYL No Route: IV, Mem oria (ANES) 06-11 Drug form: l 20:26: INJ, ONCE, Stop date: 06/11/21 15:26:00 CDT 72 HR No 1 patch, Memoria Scopolamine 06-11 Route: l 0.0139 20:00: TOP, Drug Corbin n MG/HR 00 Form: Transdermal ERFILM, Patch kg, PRE OP, Start date: 06/11/21 15:00:00 CDT, Duration: 30 day, Stop date: 07/11/21 14:59:00 CDT midazolam No Route: IV, Me moria (ANES) 06-11 Drug form: l 19:59: SOLN, 00 ONCE, Stop date: 06/11/21 14:59:00 CDT Fentanyl No Notes: Memoria 3-21 (Same as: l 19:56: Sublimaze) Preservati ve free. Hydromorpho No Notes: Aristides deisy ne 3-21 Same as l 19:56: Dilaudid Flumazenil No Notes: Memor ia 3-21 (Same as: l 19:56: Romazicon) Naloxone No Notes: Memoria 3-21 Same as l 19:56: Narcan Ondansetron No Notes: Aristides deisy 3-21 (Same as: l 19:56: Zofran) MEDICATION WASTE Product Size: 4 mg Product Wasted: ___ mg Isolyte S No Route: IV, Me moria PH 7.4 3- Total l (ANES) 1000 19:25: Volume: Her veloz mL 00 1,000, Start date: 06/11/21 14:25:00 CDT, Stop date: 06/11/21 15:25:00 CDT meloxicam Yes = 1 tab, Aristides deisy 3-21 PO, Every l 17:11: Other Day, 0 Refill(s) Acetaminoph No Notes: Max Memoria en 3-21 acetaminop l 17:02: hen 4000 Eric 00 mg/day (4 gm/day). (Same as: Tylenol Extra Strength) Oxycodone No Notes: Memori a Hydrochlori 3-21 (Same as: l de 1 MG/ML 17:02: 'Roxicodon H ermann Oral 00 e) Solution Oxycodone No Notes: Memori a 3-21 (Same as: l 17:02: Roxicodone ) Naloxone No Notes: Memoria 3-21 Same as l 17:02: Narcan sennosides, No Notes: Aristides deisy ALF 3-21 (Same as: l 17:02: Senokot) Dextrose No 12.5 gm, Memor ia 50% Syringe 3-21 25 mL, l (D50W) 17:01: Route: IVP, Drug Form: INJ, kg, PRN, PRN Blood Glucose Results, Start date: 06/11/21 12:01:00 CDT, Duration: 30 day, Stop date: 07/11/21 12:00:00 CDT, 0 Glucagon No 1 mg, Memoria 06-11 Route: IM, l 17:01: Drug form: PDR/INJ, PRN, kg, PRN Blood Glucose Results, Start date: 06/11/21 12:01:00 CDT, Duration: 30 day, Stop date: 07/11/21 12:00:00 CDT, 0 Cefazolin No Notes: Memori a 3-21 (Same as l 10:00: Ancef) Morphine No Notes: Memoria 3-21 (Same l 09:23: as:MORPhin e Sulfate) Ondansetron No Notes: Aristides deisy -21 (Same as: l 09:23: Zofran) MEDICATION WASTE Product Size: 4 mg Product Wasted: ___ mg Multivitami Multivitami Yes Weston as Common n Adult n Adult Acosta directed Spir it - [facility] Glucosamine Glucosamine Yes Weston 2 capsules Common Complex/Vit Complex/Vit Acosta Spirit amador D3 amador D3 - [facility] Fluticasone Fluticasone Yes Weston 2 sprays Common Propionate Propionate Acosta in each Spirit nostril - [facility] Vitamin B12 Vitamin B12 Yes Weston Liquid--1 Common Acosta drop (1 Spirit mL) - [facility] Meloxicam Meloxicam No Meloxicam 7.5 MG 7.5 MG 7.5 MG Vitamin B12 Vitamin B12 No Vitamin 500 MCG 500 MCG B12 500 MCG Multivitami Multivitami No Multivitam n Adult - n Adult - in Adult - Glucosamine Glucosamine No 2{capsu Glucosamin Complex/Vit Complex/Vit les} e amador D3 - amador D3 - Complex/Vi tamin D3 - Fluticasone Fluticasone No 2{spray QD Fluticason Propionate Propionate s_in_ea e 50 MCG/ACT 50 MCG/ACT ch_nost Propionate ril} 50 MCG/ACT Meloxicam Meloxicam No Meloxicam 7.5 MG 7.5 MG 7.5 MG Vitamin B12 Vitamin B12 No Vitamin 500 MCG 500 MCG B12 500 MCG Multivitami Multivitami No Multivitam n Adult - n Adult - in Adult - Glucosamine Glucosamine No 2{capsu Glucosamin Complex/Vit Complex/Vit les} e amador D3 - amador D3 - Complex/Vi tamin D3 - Fluticasone Fluticasone No 2{spray QD Fluticason Propionate Propionate s_in_ea e 50 MCG/ACT 50 MCG/ACT ch_nost Propionate ril} 50 MCG/ACT Multivitami Multivitami No Multivitam n Adult - n Adult - in Adult - Vitamin B12 Vitamin B12 No Vitamin 500 MCG 500 MCG B12 500 MCG Meloxicam Meloxicam No Meloxicam 7.5 MG 7.5 MG 7.5 MG Glucosamine Glucosamine No 2{capsu Glucosamin Complex/Vit Complex/Vit les} e amador D3 - amador D3 - Complex/Vi tamin D3 - Fluticasone Fluticasone No 2{spray QD Fluticason Propionate Propionate s_in_ea e 50 MCG/ACT 50 MCG/ACT ch_nost Propionate ril} 50 MCG/ACT Vitamin B12 Vitamin B12 No Vitamin 500 MCG 500 MCG B12 500 MCG Meloxicam Meloxicam No Meloxicam 7.5 MG 7.5 MG 7.5 MG Fluticasone Fluticasone No 2{spray QD Fluticason Propionate Propionate s_in_ea e 50 MCG/ACT 50 MCG/ACT ch_nost Propionate ril} 50 MCG/ACT Multivitami Multivitami No Multivitam n Adult - n Adult - in Adult - Glucosamine Glucosamine No 2{capsu Glucosamin Complex/Vit Complex/Vit les} e amador D3 - amador D3 - Complex/Vi tamin D3 - Meloxicam Meloxicam No Meloxicam 7.5 MG 7.5 MG 7.5 MG Vitamin B12 Vitamin B12 No Vitamin 500 MCG 500 MCG B12 500 MCG Fluticasone Fluticasone No 2{spray QD Fluticason Propionate Propionate s_in_ea e 50 MCG/ACT 50 MCG/ACT ch_nost Propionate ril} 50 MCG/ACT Glucosamine Glucosamine No 2{capsu Glucosamin Complex/Vit Complex/Vit les} e amador D3 - amador D3 - Complex/Vi tamin D3 - Multivitami Multivitami No Multivitam n Adult - n Adult - in Adult - Vitamin B12 Vitamin B12 No Vitamin 500 MCG 500 MCG B12 500 MCG Glucosamine Glucosamine No 2{capsu Glucosamin Complex/Vit Complex/Vit les} e amador D3 - amador D3 - Complex/Vi tamin D3 - Meloxicam Meloxicam No Meloxicam 7.5 MG 7.5 MG 7.5 MG Multivitami Multivitami No Multivitam n Adult - n Adult - in Adult - Fluticasone Fluticasone No 2{spray QD Fluticason Propionate Propionate s_in_ea e 50 MCG/ACT 50 MCG/ACT ch_nost Propionate ril} 50 MCG/ACT Fluticasone Fluticasone No 2{spray QD Fluticason Propionate Propionate s_in_ea e 50 MCG/ACT 50 MCG/ACT ch_nost Propionate ril} 50 MCG/ACT Vitamin B12 Vitamin B12 No Vitamin 500 MCG 500 MCG B12 500 MCG Glucosamine Glucosamine No 2{capsu Glucosamin Complex/Vit Complex/Vit les} e amador D3 - amador D3 - Complex/Vi tamin D3 - Meloxicam Meloxicam No Meloxicam 7.5 MG 7.5 MG 7.5 MG Multivitami Multivitami No Multivitam n Adult - n Adult - in Adult - Fluticasone Fluticasone No 2{spray QD Fluticason Propionate Propionate s_in_ea e 50 MCG/ACT 50 MCG/ACT ch_nost Propionate ril} 50 MCG/ACT Vitamin B12 Vitamin B12 No Vitamin 500 MCG 500 MCG B12 500 MCG Glucosamine Glucosamine No 2{capsu Glucosamin Complex/Vit Complex/Vit les} e amador D3 - amador D3 - Complex/Vi tamin D3 - Meloxicam Meloxicam No Meloxicam 7.5 MG 7.5 MG 7.5 MG Multivitami Multivitami No Multivitam n Adult - n Adult - in Adult - Meloxicam Meloxicam No Meloxicam 7.5 MG 7.5 MG 7.5 MG Magnesium Magnesium No Magnesium Oxide Oxide Oxide Vitamin B12 Vitamin B12 No Vitamin 500 MCG 500 MCG B12 500 MCG Fluticasone Fluticasone No 2{spray QD Fluticason Propionate Propionate s_in_ea e 50 MCG/ACT 50 MCG/ACT ch_nost Propionate ril} 50 MCG/ACT Glucosamine Glucosamine No 2{capsu Glucosamin Complex/Vit Complex/Vit les} e amador D3 - amador D3 - Complex/Vi tamin D3 - Multivitami Multivitami No Multivitam n Adult - n Adult - in Adult - Meloxicam Meloxicam No Meloxicam 7.5 MG 7.5 MG 7.5 MG Magnesium Magnesium No Magnesium Oxide Oxide Oxide Vitamin B12 Vitamin B12 No Vitamin 500 MCG 500 MCG B12 500 MCG Fluticasone Fluticasone No 2{spray QD Fluticason Propionate Propionate s_in_ea e 50 MCG/ACT 50 MCG/ACT ch_nost Propionate ril} 50 MCG/ACT Glucosamine Glucosamine No 2{capsu Glucosamin Complex/Vit Complex/Vit les} e amador D3 - amador D3 - Complex/Vi tamin D3 - Multivitami Multivitami No Multivitam n Adult - n Adult - in Adult - Meloxicam Meloxicam No Meloxicam 7.5 MG 7.5 MG 7.5 MG Magnesium Magnesium No Magnesium Oxide Oxide Oxide Vitamin B12 Vitamin B12 No Vitamin 500 MCG 500 MCG B12 500 MCG Fluticasone Fluticasone No 2{spray QD Fluticason Propionate Propionate s_in_ea e 50 MCG/ACT 50 MCG/ACT ch_nost Propionate ril} 50 MCG/ACT Glucosamine Glucosamine No 2{capsu Glucosamin Complex/Vit Complex/Vit les} e amador D3 - amador D3 - Complex/Vi tamin D3 - Multivitami Multivitami No Multivitam n Adult - n Adult - in Adult - Meloxicam Meloxicam No Meloxicam 7.5 MG 7.5 MG 7.5 MG Magnesium Magnesium No Magnesium Oxide Oxide Oxide Vitamin B12 Vitamin B12 No Vitamin 500 MCG 500 MCG B12 500 MCG Fluticasone Fluticasone No 2{spray QD Fluticason Propionate Propionate s_in_ea e 50 MCG/ACT 50 MCG/ACT ch_nost Propionate ril} 50 MCG/ACT Glucosamine Glucosamine No 2{capsu Glucosamin Complex/Vit Complex/Vit les} e amador D3 - amador D3 - Complex/Vi tamin D3 - Multivitami Multivitami No Multivitam n Adult - n Adult - in Adult - Glucosamine Glucosamine No 2{capsu Glucosamin Complex/Vit Complex/Vit les} e amador D3 - amador D3 - Complex/Vi tamin D3 - Magnesium Magnesium No Magnesium Oxide Oxide Oxide Fluticasone Fluticasone No 2{spray QD Fluticason Propionate Propionate s_in_ea e 50 MCG/ACT 50 MCG/ACT ch_nost Propionate ril} 50 MCG/ACT Vitamin B12 Vitamin B12 No Vitamin 500 MCG 500 MCG B12 500 MCG Meloxicam Meloxicam No Meloxicam 7.5 MG 7.5 MG 7.5 MG Multivitami Multivitami No Multivitam n Adult - n Adult - in Adult - Glucosamine Glucosamine No 2{capsu Glucosamin Complex/Vit Complex/Vit les} e amador D3 - amador D3 - Complex/Vi tamin D3 - Magnesium Magnesium No Magnesium Oxide Oxide Oxide Fluticasone Fluticasone No 2{spray QD Fluticason Propionate Propionate s_in_ea e 50 MCG/ACT 50 MCG/ACT ch_nost Propionate ril} 50 MCG/ACT Vitamin B12 Vitamin B12 No Vitamin 500 MCG 500 MCG B12 500 MCG Meloxicam Meloxicam No Meloxicam 7.5 MG 7.5 MG 7.5 MG Multivitami Multivitami No Multivitam n Adult - n Adult - in Adult - Glucosamine Glucosamine No 2{capsu Glucosamin Complex/Vit Complex/Vit les} e amador D3 - amador D3 - Complex/Vi tamin D3 - Magnesium Magnesium No Magnesium Oxide Oxide Oxide Fluticasone Fluticasone No 2{spray QD Fluticason Propionate Propionate s_in_ea e 50 MCG/ACT 50 MCG/ACT ch_nost Propionate ril} 50 MCG/ACT Vitamin B12 Vitamin B12 No Vitamin 500 MCG 500 MCG B12 500 MCG Meloxicam Meloxicam No Meloxicam 7.5 MG 7.5 MG 7.5 MG Multivitami Multivitami No Multivitam n Adult - n Adult - in Adult - Meloxicam Meloxicam No Meloxicam 7.5 MG 7.5 MG 7.5 MG Magnesium Magnesium No Magnesium Oxide Oxide Oxide Vitamin B12 Vitamin B12 No Vitamin 500 MCG 500 MCG B12 500 MCG Fluticasone Fluticasone No 2{spray QD Fluticason Propionate Propionate s_in_ea e 50 MCG/ACT 50 MCG/ACT ch_nost Propionate ril} 50 MCG/ACT Glucosamine Glucosamine No 2{capsu Glucosamin Complex/Vit Complex/Vit les} e amador D3 - amador D3 - Complex/Vi tamin D3 - Multivitami Multivitami No Multivitam n Adult - n Adult - in Adult - Immunizations Ordered Immunization Filled Immunization Date Status Commen ts Source Name Name FLUZONE HIGH DOSE FLUZONE HIGH DOSE 2021-12-18 Completed [facility] OVER [facility] OVER 65 09:52:00 - [facility] FLUZONE HIGH DOSE FLUZONE HIGH DOSE 2021-12-18 Completed [facility] OVER 65 OVER 65 09:52:00 - [facility] FLUZONE HIGH DOSE FLUZONE HIGH DOSE 2021-12-18 Completed [facility] OVER 65 OVER 65 09:52:00 - [facility] FLUZONE HIGH DOSE FLUZONE HIGH DOSE 2021-12-18 Completed [facility] OVER 65 OVER 65 09:52:00 - [facility] FLUZONE HIGH DOSE FLUZONE HIGH DOSE 2021-12-18 Completed [facility] OVER 65 OVER 65 09:52:00 - [facility] FLUZONE HIGH DOSE FLUZONE HIGH DOSE 2021-12-18 Completed [facility] OVER 65 OVER 65 09:52:00 - [facility] FLUZONE HIGH DOSE FLUZONE HIGH DOSE 2021-12-18 Completed [facility] OVER 65 OVER 65 09:52:00 - [facility] FLUZONE HIGH DOSE FLUZONE HIGH DOSE 2021-12-18 Completed [facility] OVER 65 OVER 65 09:52:00 - [facility] FLUZONE HIGH DOSE FLUZONE HIGH DOSE 2021-01-12 Completed [facility] OVER 65 OVER 65 13:24:00 - [facility] FLUZONE HIGH DOSE FLUZONE HIGH DOSE 2021-01-12 Completed [facility] OVER 65 OVER 65 13:24:00 - [facility] FLUZONE HIGH DOSE FLUZONE HIGH DOSE 2021-01-12 Completed [facility] OVER 65 OVER 65 13:24:00 - [facility] FLUZONE HIGH DOSE FLUZONE HIGH DOSE 2021-01-12 Completed [facility] OVER 65 OVER 65 13:24:00 - [facility] FLUZONE HIGH DOSE FLUZONE HIGH DOSE 2021-01-12 Completed [facility] OVER 65 OVER 65 13:24:00 - [facility] FLUZONE HIGH DOSE FLUZONE HIGH DOSE 2021-01-12 Completed [facility] OVER 65 OVER 65 13:24:00 - [facility] FLUZONE HIGH DOSE FLUZONE HIGH DOSE 2021-01-12 Completed [facility] OVER 65 OVER 65 13:24:00 - [facility] FLUZONE HIGH DOSE FLUZONE HIGH DOSE 2021-01-12 Completed [facility] OVER 65 OVER 65 13:24:00 - [facility] FLUZONE HIGH DOSE FLUZONE HIGH DOSE 2021-01-12 Completed [facility] OVER 65 OVER 65 13:24:00 - [facility] FLUZONE HIGH DOSE FLUZONE HIGH DOSE 2021-01-12 Completed [facility] OVER 65 OVER 65 13:24:00 - [facility] FLUZONE HIGH DOSE FLUZONE HIGH DOSE 2021-01-12 Completed [facility] OVER 65 OVER 65 13:24:00 - [facility] FLUZONE HIGH DOSE FLUZONE HIGH DOSE 2021-01-12 Completed [facility] OVER 65 OVER 65 13:24:00 - [facility] FLUZONE HIGH DOSE FLUZONE HIGH DOSE 2021-01-12 Completed [facility] OVER 65 OVER 65 13:24:00 - [facility] FLUZONE HIGH DOSE FLUZONE HIGH DOSE 2021-01-12 Completed [facility] OVER 65 OVER 65 13:24:00 - [facility] FLUZONE HIGH DOSE FLUZONE HIGH DOSE 2021-01-12 Completed [facility] OVER 65 OVER 65 13:24:00 - [facility] FLUZONE HIGH DOSE FLUZONE HIGH DOSE 2021-01-12 Completed [facility] OVER 65 OVER 65 13:24:00 [facility] Moderna COVID-19 Moderna COVID-19 2020-07-19 Completed [facility] Vaccine Vaccine 11:17:00 [facility] Moderna COVID-19 Moderna COVID-19 2020-07-19 Completed [facility] Vaccine Vaccine 11:17:00 - [facility] Moderna COVID-19 Moderna COVID-19 2020-07-19 Completed [facility] Vaccine Vaccine 11:17:00 - [facility] Moderna COVID-19 Moderna COVID-19 2020-07-19 Completed [facility] Vaccine Vaccine 11:17:00 - [facility] Moderna COVID-19 Moderna COVID-19 2020-07-19 Completed [facility] Vaccine Vaccine 11:17:00 - [facility] Moderna COVID-19 Moderna COVID-19 2020-07-19 Completed [facility] Vaccine Vaccine 11:17:00 - [facility] Moderna COVID-19 Moderna COVID-19 2020-07-19 Completed [facility] Vaccine Vaccine 11:17:00 - [facility] Moderna COVID-19 Moderna COVID-19 2020-07-19 Completed [facility] Vaccine Vaccine 11:17:00 - [facility] Moderna COVID-19 Moderna COVID-19 2020-07-19 Completed [facility] Vaccine Vaccine 11:17:00 - [facility] Moderna COVID-19 Moderna COVID-19 2020-07-19 Completed [facility] Vaccine Vaccine 11:17:00 - [facility] Moderna COVID-19 Moderna COVID-19 2020-07-19 Completed [facility] Vaccine Vaccine 11:17:00 - [facility] Moderna COVID-19 Moderna COVID-19 2020-07-19 Completed [facility] Vaccine Vaccine 11:17:00 - [facility] Moderna COVID-19 Moderna COVID-19 2020-07-19 Completed [facility] Vaccine Vaccine 11:17:00 - [facility] Moderna COVID-19 Moderna COVID-19 2020-07-19 Completed [facility] Vaccine Vaccine 11:17:00 - [facility] Moderna COVID-19 Moderna COVID-19 2020-07-19 Completed [facility] Vaccine Vaccine 11:17:00 - [facility] Moderna COVID-19 Moderna COVID-19 2020-07-19 Completed [facility] Vaccine Vaccine 11:17:00 - [facility] Moderna COVID-19 Moderna COVID-19 2020-06-21 Completed [facility] Vaccine Vaccine 11:17:00 - [facility] Moderna COVID-19 Moderna COVID-19 2020-06-21 Completed [facility] Vaccine Vaccine 11:17:00 - [facility] Moderna COVID-19 Moderna COVID-19 2020-06-21 Completed [facility] Vaccine Vaccine 11:17:00 - [facility] Moderna COVID-19 Moderna COVID-19 2020-06-21 Completed [facility] Vaccine Vaccine 11:17:00 - [facility] Moderna COVID-19 Moderna COVID-19 2020-06-21 Completed [facility] Vaccine Vaccine 11:17:00 - [facility] Moderna COVID-19 Moderna COVID-19 2020-06-21 Completed [facility] Vaccine Vaccine 11:17:00 - [facility] Moderna COVID-19 Moderna COVID-19 2020-06-21 Completed [facility] Vaccine Vaccine 11:17:00 - [facility] Moderna COVID-19 Moderna COVID-19 2020-06-21 Completed [facility] Vaccine Vaccine 11:17:00 - [facility] Moderna COVID-19 Moderna COVID-19 2020-06-21 Completed [facility] Vaccine Vaccine 11:17:00 - [facility] Moderna COVID-19 Moderna COVID-19 2020-06-21 Completed [facility] Vaccine Vaccine 11:17:00 - [facility] Moderna COVID-19 Moderna COVID-19 2020-06-21 Completed [facility] Vaccine Vaccine 11:17:00 - [facility] Moderna COVID-19 Moderna COVID-19 2020-06-21 Completed [facility] Vaccine Vaccine 11:17:00 - [facility] Moderna COVID-19 Moderna COVID-19 2020-06-21 Completed [facility] Vaccine Vaccine 11:17:00 - [facility] Moderna COVID-19 Moderna COVID-19 2020-06-21 Completed [facility] Vaccine Vaccine 11:17:00 - [facility] Moderna COVID-19 Moderna COVID-19 2020-06-21 Completed [facility] Vaccine Vaccine 11:17:00 - [facility] Moderna COVID-19 Moderna COVID-19 2020-06-21 Completed [facility] Vaccine Vaccine 11:17:00 - [facility] Shingrix Shingrix 2020-05-30 Completed [facility] 09:37:00 [facility] Shingrix Shingrix 2020-05-30 Completed [facility] 09:37:00 - [facility] Shingrix Shingrix 2020-05-30 Completed [facility] 09:37:00 [facility] Shingrix Shingrix 2020-05-30 Completed [facility] 09:37:00 [facility] Shingrix Shingrix 2020-05-30 Completed [facility] 09:37:00 [facility] Shingrix Shingrix 2020-05-30 Completed [facility] 09:37:00 - [facility] Shingrix Shingrix 2020-05-30 Completed [facility] 09:37:00 - [facility] Shingrix Shingrix 2020-05-30 Completed [facility] 09:37:00 [facility] Shingrix Shingrix 2020-05-30 Completed [facility] 09:37:00 [facility] Shingrix Shingrix 2020-05-30 Completed [facility] 09:37:00 - [facility] Shingrix Shingrix 2020-05-30 Completed [facility] 09:37:00 - [facility] Shingrix Shingrix 2020-05-30 Completed [facility] 09:37:00 [facility] Shingrix Shingrix 2020-05-30 Completed [facility] 09:37:00 [facility] Shingrix Shingrix 2020-05-30 Completed [facility] 09:37:00 [facility] Shingrix Shingrix 2020-05-30 Completed [facility] 09:37:00 [facility] Shingrix Shingrix 2020-05-30 Completed [facility] 09:37:00 [facility] Shingrix Shingrix 2020-03-15 Completed [facility] 10:56:00 [facility] Shingrix Shingrix 2020-03-15 Completed [facility] 10:56:00 - [facility] Shingrix Shingrix 2020-03-15 Completed [facility] 10:56:00 - [facility] Shingrix Shingrix 2020-03-15 Completed [facility] 10:56:00 - [facility] Shingrix Shingrix 2020-03-15 Completed [facility] 10:56:00 - [facility] Shingrix Shingrix 2020-03-15 Completed [facility] 10:56:00 - [facility] Shingrix Shingrix 2020-03-15 Completed [facility] 10:56:00 - [facility] Shingrix Shingrix 2020-03-15 Completed [facility] 10:56:00 - [facility] Shingrix Shingrix 2020-03-15 Completed [facility] 10:56:00 - [facility] Shingrix Shingrix 2020-03-15 Completed [facility] 10:56:00 - [facility] Shingrix Shingrix 2020-03-15 Completed [facility] 10:56:00 - [facility] Shingrix Shingrix 2020-03-15 Completed [facility] 10:56:00 - [facility] Shingrix Shingrix 2020-03-15 Completed [facility] 10:56:00 - [facility] Shingrix Shingrix 2020-03-15 Completed [facility] 10:56:00 - [facility] Shingrix Shingrix 2020-03-15 Completed [facility] 10:56:00 - [facility] Shingrix Shingrix 2020-03-15 Completed [facility] 10:56:00 - [facility] Prevnar 13 (PCV13) Prevnar 13 (PCV13) 2020-02-24 Completed [facility] 08:33:00 - [facility] Prevnar 13 (PCV13) Prevnar 13 (PCV13) 2020-02-24 Completed [facility] 08:33:00 - [facility] Prevnar 13 (PCV13) Prevnar 13 (PCV13) 2020-02-24 Completed [facility] 08:33:00 - [facility] Prevnar 13 (PCV13) Prevnar 13 (PCV13) 2020-02-24 Completed [facility] 08:33:00 - [facility] Prevnar 13 (PCV13) Prevnar 13 (PCV13) 2020-02-24 Completed [facility] 08:33:00 - [facility] Prevnar 13 (PCV13) Prevnar 13 (PCV13) 2020-02-24 Completed [facility] 08:33:00 [facility] Prevnar 13 (PCV13) Prevnar 13 (PCV13) 2020-02-24 Completed [facility] 08:33:00 - [facility] Prevnar 13 (PCV13) Prevnar 13 (PCV13) 2020-02-24 Completed [facility] 08:33:00 - [facility] Prevnar 13 (PCV13) Prevnar 13 (PCV13) 2020-02-24 Completed [facility] 08:33:00 - [facility] Prevnar 13 (PCV13) Prevnar 13 (PCV13) 2020-02-24 Completed [facility] 08:33:00 - [facility] Prevnar 13 (PCV13) Prevnar 13 (PCV13) 2020-02-24 Completed [facility] 08:33:00 [facility] Prevnar 13 (PCV13) Prevnar 13 (PCV13) 2020-02-24 Completed [facility] 08:33:00 - [facility] Prevnar 13 (PCV13) Prevnar 13 (PCV13) 2020-02-24 Completed [facility] 08:33:00 [facility] Prevnar 13 (PCV13) Prevnar 13 (PCV13) 2020-02-24 Completed [facility] 08:33:00 - [facility] Prevnar 13 (PCV13) Prevnar 13 (PCV13) 2020-02-24 Completed [facility] 08:33:00 [facility] Prevnar 13 (PCV13) Prevnar 13 (PCV13) 2020-02-24 Completed [facility] 08:33:00 [facility] Adacel (Tdap) Adacel (Tdap) 2020-02-24 Completed [facility] 08:32:00 [facility] Adacel (Tdap) Adacel (Tdap) 2020-02-24 Completed [facility] 08:32:00 - [facility] Adacel (Tdap) Adacel (Tdap) 2020-02-24 Completed [facility] 08:32:00 - [facility] Adacel (Tdap) Adacel (Tdap) 2020-02-24 Completed [facility] 08:32:00 - [facility] Adacel (Tdap) Adacel (Tdap) 2020-02-24 Completed [facility] 08:32:00 - [facility] Adacel (Tdap) Adacel (Tdap) 2020-02-24 Completed [facility] 08:32:00 - [facility] Adacel (Tdap) Adacel (Tdap) 2020-02-24 Completed [facility] 08:32:00 - [facility] Adacel (Tdap) Adacel (Tdap) 2020-02-24 Completed [facility] 08:32:00 - [facility] Adacel (Tdap) Adacel (Tdap) 2020-02-24 Completed [facility] 08:32:00 - [facility] Adacel (Tdap) Adacel (Tdap) 2020-02-24 Completed [facility] 08:32:00 - [facility] Adacel (Tdap) Adacel (Tdap) 2020-02-24 Completed [facility] 08:32:00 - [facility] Adacel (Tdap) Adacel (Tdap) 2020-02-24 Completed [facility] 08:32:00 - [facility] Adacel (Tdap) Adacel (Tdap) 2020-02-24 Completed [facility] 08:32:00 - [facility] Adacel (Tdap) Adacel (Tdap) 2020-02-24 Completed [facility] 08:32:00 - [facility] Adacel (Tdap) Adacel (Tdap) 2020-02-24 Completed [facility] 08:32:00 - [facility] Adacel (Tdap) Adacel (Tdap) 2020-02-24 Completed [facility] 08:32:00 - [facility] Afluria single dose Afluria single dose 2020-02-24 Completed [facility] 08:11:00 - [facility] Afluria single dose Afluria single dose 2020-02-24 Completed [facility] 08:11:00 [facility] Afluria single dose Afluria single dose 2020-02-24 Completed [facility] 08:11:00 [facility] Afluria single dose Afluria single dose 2020-02-24 Completed [facility] 08:11:00 [facility] Afluria single dose Afluria single dose 2020-02-24 Completed [facility] 08:11:00 - [facility] Afluria single dose Afluria single dose 2020-02-24 Completed [facility] 08:11:00 [facility] Afluria single dose Afluria single dose 2020-02-24 Completed [facility] 08:11:00 - [facility] Afluria single dose Afluria single dose 2020-02-24 Completed [facility] 08:11:00 [facility] Afluria single dose Afluria single dose 2020-02-24 Completed [facility] 08:11:00 - [facility] Afluria single dose Afluria single dose 2020-02-24 Completed [facility] 08:11:00 [facility] Afluria single dose Afluria single dose 2020-02-24 Completed [facility] 08:11:00 [facility] Afluria single dose Afluria single dose 2020-02-24 Completed [facility] 08:11:00 [facility] Afluria single dose Afluria single dose 2020-02-24 Completed [facility] 08:11:00 [facility] Afluria single dose Afluria single dose 2020-02-24 Completed [facility] 08:11:00 [facility] Afluria single dose Afluria single dose 2020-02-24 Completed [facility] 08:11:00 [facility] Afluria single dose Afluria single dose 2020-02-24 Completed [facility] 08:11:00 [facility] Vital Signs Vital Name Observation Time Observation Value Comments Source height 2022-04-22 10:40:00 59.5 [in_i] [facility] weight 2022-04-22 10:40:00 164 [lb_av] [facility] temperature 2022-04-22 10:40:00 98 [degF] [facility] bmi 2022-04-22 10:40:00 32.57 kg/m2 [facility] blood pressure 2022-04-22 10:40:00 130 mm[Hg] [facility] - systolic [facility] blood pressure 2022-04-22 10:40:00 72 mm[Hg] [facility] - diastolic [facility] height 2022-04-22 16:00:00 59.5 [in_i] [facility] weight 2022-04-22 16:00:00 164 [lb_av] [facility] bmi 2022-04-22 16:00:00 32.57 kg/m2 [facility] S [facility] height 2021-12-18 09:50:00 59.5 [in_i] [facility] weight 2021-12-18 09:50:00 168 [lb_av] [facility] temperature 2021-12-18 09:50:00 97.2 [degF] [facility] bmi 2021-12-18 09:50:00 33.36 kg/m2 [facility] oximetry 2021-12-18 09:50:00 94 % [facility] respiratory rate 2021-12-18 09:50:00 18 /min [facility] blood pressure 2021-12-18 09:50:00 132 mm[Hg] [facility] - systolic [facility] blood pressure 2021-12-18 09:50:00 76 mm[Hg] [facility] - diastolic [facility] height 2021-08-15 11:20:00 58.75 [in_i] [facility] weight 2021-08-15 11:20:00 171 [lb_av] [facility] bmi 2021-08-15 11:20:00 34.83 kg/m2 [facility] - [facility] height 2021-04-16 09:00:00 58.75 [in_i] [facility] weight 2021-04-16 09:00:00 171.4 [lb_av] [facility] temperature 2021-04-16 09:00:00 97.3 [degF] [facility] bmi 2021-04-16 09:00:00 34.91 kg/m2 [facility] 2021-04-16 09:00:00 97 % [facility] respiratory rate 2021-04-16 09:00:00 18 /min [facility] blood pressure 2021-04-16 09:00:00 132 mm[Hg] [facility] - systolic [facility] blood pressure 2021-04-16 09:00:00 62 mm[Hg] [facility] - diastolic [facility] height 2021-04-16 09:00:00 58.75 [in_i] [facility] weight 2021-04-16 09:00:00 171.4 [lb_av] [facility] temperature 2021-04-16 09:00:00 97.3 [degF] [facility] bmi 2021-04-16 09:00:00 34.91 kg/m2 [facility] oximetry 2021-04-16 09:00:00 97 % [facility] blood pressure 2021-04-16 09:00:00 132 mm[Hg] [facility] - systolic [facility] blood pressure 2021-04-16 09:00:00 62 mm[Hg] [facility] - diastolic [facility] height 2021-01-12 10:40:00 58.75 [in_i] [facility] weight 2021-01-12 10:40:00 171.8 [lb_av] [facility] temperature 2021-01-12 10:40:00 96.7 [degF] [facility] - [facility] bmi 2021-01-12 10:40:00 34.99 kg/m2 [facility] - [facility] oximetry 2021-01-12 10:40:00 94 % [facility] - [facility] respiratory rate 2021-01-12 10:40:00 18 /min [facility] blood pressure 2021-01-12 10:40:00 122 mm[Hg] [facility] - systolic [facility] blood pressure 2021-01-12 10:40:00 70 mm[Hg] [facility] - diastolic [facility] Respitory Rate 2021-06-16 17:00:00 Memori al Eric Systolic (mm Hg) 2021-06-16 17:00:00 Aristides rial Eric Diastolic (mm Hg) 2021-06-16 17:00:00 Mem orial [place] Respitory Rate 2021-06-16 16:00:00 [facility] Systolic (mm Hg) 2021-06-16 16:00:00 Aristides rial [place] Diastolic (mm Hg) 2021-06-16 16:00:00 [facility] [place] Respitory Rate 2021-06-16 15:00:00 [facility] Systolic (mm Hg) 2021-06-16 15:00:00 Aristides rial [place] Diastolic (mm Hg) 2021-06-16 15:00:00 Mem orial Eric Temperature Oral (F) 2021-06-13 05:20:00 97.6 F [facility] Temperature Oral (F) 2021-06-13 01:54:00 98.0 F [facility] Temperature Oral (F) 2021-06-12 09:00:00 96.5 F [facility] Height 2021-06-12 08:14:00 149.86 cm [facility] Weight 2021-06-12 08:14:00 [facility] BMI Calculated 2021-06-12 08:14:00 [facility] Heart Rate 2021-06-11 14:20:00 [facility] Heart Rate 2021-06-11 09:13:00 [facility] Procedures Procedure Date / Time Performed Performing Clinician [facility] e Tube thoracostomy, 2021-06-13 17:30:00 [facility] includes connection to drainage system (eg, water seal), when performed, open (separate procedure) Encounters Start End Encounter Admission Attending Care Care Encounter Source Date/Time Date/Time Type Type Clinicians Facility Department ID 2022-08-28 Outpatient Acosta, STLMLC STLMLC Common 15:44:00 [place]on [address] [facility] 2022-04-18 Outpatient Acosta, STLMLC STLMLC [facility] 13:28:00 [place]on [address] [facility] 2022-01-18 Outpatient Acosta, STLMLC STLMLC Common 15:23:00 [place] [address] [facility] 2021-07-03 Outpatient Acosta, STLMLC STLMLC Common 09:25:00 Weston [facility] 2021-04-25 Outpatient Acosta, STLMLC STLMLC Common 09:21:01 Weston [facility] 2021-04-18 Outpatient Acosta, STLMLC STLMLC Common 14:38:44 Weston [facility] 2021-04-18 Outpatient Acosta, STLMLC STLMLC Common 13:42:13 [place]on [address] [facility] 2021-04-18 Outpatient Acosta, STLMLC STLMLC Common 13:12:40 Weston [address] [facility] 2021-04-18 Outpatient Acosta, STLMLC STLMLC Common 12:54:06 [place] [address] [facility] 2021-04-18 Outpatient Acosta, STLMLC STLMLC Common 12:37:44 [place] [address] [facility] 2021-04-18 Outpatient Acosta, STLMLC STLMLC Common 12:15:54 [place]on [address] [facility] 2021-04-18 Outpatient Acosta, STLMLC STLMLC Common 12:09:57 [place] [address] [facility] 2021-04-18 Outpatient Acosta, STLMLC STLMLC [id number] Common 11:39:22 [facility] [address] [facility] 2022-04-22 2022-04-22 OFFICE STLMLC STLMLC [id number] [facility] 00:00:00 00:00:00 VISIT [facility] ESTAB PT - CHI LEVEL 4 [facility] 2022-04-22 2022-04-22 SUB ANNUAL STLMLC STLMLC [id number] Common 00:00:00 00:00:00 MCR [facility] WELLNESS - CHI VISIT [facility] 2022-04-22 2022-04-22 (TEL) STLMLC STLMLC [id number] [facility] 00:00:00 00:00:00 [facility] 2022-03-12 2022-03-12 (TEL) STLMLC STLMLC [id number] [facility] 00:00:00 00:00:00 [facility] 2022-03-11 2022-03-11 (TEL) STLMLC STLMLC [id number] [facility] 00:00:00 00:00:00 [facility] 2022-01-18 2022-01-18 (TEL) STLMLC STLMLC [id number] [facility] 00:00:00 00:00:00 [facility] 2021-12-27 2021-12-27 Outpatient [facility] [id number] [place] 12:15:00 12:15:00 Health 2021-12-27 2021-12-27 Office AZALEA Morel 6414 [id number] [place] 12:15:00 12:15:00 Visit Wesly JONES [id number] Health [id number] 2021-12-18 2021-12-18 OFFICE STLMLC STLMLC [id number] [facility]mon 00:00:00 00:00:00 VISIT EST Spir it PT LEVEL 3 - [facility] 2021-12-06 2021-12-06 Outpatient [facility] [id number] [place] 09:45:00 09:45:00 Health 2021-09-06 2021-09-06 Office AZALEA Cai 6414 [id number] [place] 11:15:00 11:15:[address] [id number] Health [id number] 2021-08-15 2021-08-15 (TEL) STLMLC STLMLC [id number] [facility] 00:00:00 00:00:00 [facility] 2021-08-15 2021-08-15 OFFICE STLMLC STLMLC [id number] [facility] 00:00:00 00:00:00 VISIT EST Spir it PT LEVEL 3 - [facility] 2021-07-26 2021-07-26 Office Satinder, [facility] 6414 [id number] [place] 11:15:00 11:37:[address] [id number] Health [id number] 2021-06-28 2021-06-28 Office Ernesto UTP 6414 [id number] [place] 13:00:00 13:00:[address] [id number] Health [id number] 1 2021-06-18 2021-06-18 (TEL) STLMLC STLMLC [id number] [facility] 00:00:00 00:00:00 [facility] 2021-06-11 2021-06-[address] [facility] [id number] [facility] 09:04[facility] [address] [place] [address] 2021-06-11 2021-06-16 Inpatient Shay BARR [address] 09:54:00 14:40:00 DIDIER 2021-06-11 2021-06-16 Outpatient Osvaldo [facility] [id number] 04:04:00 14:40:00 Didier 00 [place] 2021-06-11 2021-06-16 Outpatient Osvaldo [facility] [id number] 04:04:00 14:40:00 Didier 00 Mayank 2021-06-11 2021-06-[address] [facility] [id number] [facility] 07:50:00 07:50:[address] 2021-06-11 2021-06-11 Outpatient Ernesto [facility] [id number] 02:50:00 02:50:00 Wesly Hale 2021-04-16 2021-04-16 OFFICE STLMLC STLMLC [id number] Co [facility] 00:00:00 00:00:00 VISIT EST Spir it PT LEVEL 3 [facility] 2021-04-16 2021-04-16 SUB ANNUAL STLMLC STLMLC [id number] Common 00:00:00 00:00:00 [facility] VISIT [facility] 2021-01-18 2021-01-18 (TEL) STLMLC STLMLC [id number] [facility] 00:00:00 00:00:00 [facility] 2021-01-12 2021-01-12 OFFICE STLMLC STLMLC [id number] [facility] 00:00:00 00:00:00 VISIT EST Spir it PT LEVEL 3 - [facility] 2021-01-11 2021-01-11 (TEL) STLMLC STLMLC [id number] [facility] 00:00:00 00:00:00 [facility] 2020-11-20 2020-11-20 Outpatient STLMLC STLMLC [id number] Common 00:00:00 00:00:00 [facility] 2020-11-16 2020-11-16 Outpatient STLMLC STLMLC [id number] Common 00:00:00 00:00:00 [facility] 2020-11-15 2020-11-15 Outpatient STLMLC STLMLC [id number] Common 00:00:00 00:00:00 [facility] 2020-11-14 2020-11-14 Outpatient STLMLC STLMLC [id number] Common 00:00:00 00:00:00 [facility] 2020-11-14 2020-11-14 Outpatient STLMLC STLMLC [id number] Common 00:00:00 00:00:00 [facility] 2020-07-12 2020-07-12 Outpatient STLMLC STLMLC [id number] Common 00:00:00 00:00:00 [facility] 2020-05-30 2020-05-30 Outpatient STLMLC STLMLC [id number] Common 00:00:00 00:00:00 [facility] 2020-05-13 2020-05-13 Outpatient STLMLC STLMLC [id number] Common 00:00:00 00:00:00 [facility] 2020-03-15 2020-03-15 Outpatient STLMLC STLMLC [id number] Common 00:00:00 00:00:00 [facility] 2020-03-03 2020-03-03 Outpatient STLMLC STLMLC [id number] Common 00:00:00 00:00:00 [facility] 2020-02-24 2020-02-24 Outpatient STLMLC STLMLC [id number] Common 00:00:00 00:00:00 [facility] 2019-11-11 2019-11-11 Out[facility] [id number] Common 10:04:00 10:04:[address] [facility] 2019-11-11 2019-11-11 [facility] [id number] Common 09:30:00 09:30:[address] [facility] 2019-10-06 2019-10-06 [facility] [id number] Common 14:20:00 14:20:[address] [facility] [address] [facility] 2019-10-06 2019-10-06 [facility] [id number] Common 08:13:00 08:13:[address] [facility] 2019-10-04 2019-10-04 [facility] [id number] Common 14:27:00 14:27:[address] [facility] 2019-06-28 2019-06-28 [facility] [id number] Common 22:08:00 22:08:[address] [facility] 2019-06-28 2019-06-28 [facility] [id number] Common 16:15:00 16:15:[address] [facility] 2019-06-28 2019-06-28 [facility] [id number] Common 10:28:00 10:28:[address] [facility] [address] [facility] 2019-02-25 2019-02-25 Out[facility] [id number] Common 13:00:00 13:00:[address] [facility] 2018-07-31 2018-07-31 Out[facility] [id number] Common 14:40:00 14:40:[address] [facility] 2018-07-15 2018-07-15 [facility] [id number] Common 10:40:00 10:40:[address] [facility] [address] [facility] Results Test Description Test Time Test Comments Results Result Comments Source CHEM PANEL 2021-06-16 05:44:00 Test Item Value Reference Range Interpretation Comme nts Glucose Lvl (test code = Glucose Lvl) 108 70-99 [facility] [id number] 05:44:00 Test Item Value Reference Range Interpretation Comments BUN (test code = BUN) 15 7-22 [facility] [id number] 05:44:00 Test Item Value Reference Range Interpretation Comments Creatinine Lvl (test code = Creatinine 0.63 0.50-1.40 Lvl) [facility] [id number] 05:44:00 Test Item Value Reference Range Interpretation Comments Sodium Lvl (test code = Sodium Lvl) 141 135-145 [place] [id number] 05:44:00 Test Item Value Reference Range Interpretation Comments Potassium Lvl (test code = Potassium 3.8 3.5-5.1 Lvl) [place] [id number] 05:44:00 Test Item Value Reference Range Interpretation Comments Chloride Lvl (test code = Chloride Lvl) 110 95-109 [place] [id number] 05:44:00 Test Item Value Reference Range Interpretation Comments CO2 (test code = CO2) 28 24-32 [place] [id number] 05:44:00 Test Item Value Reference Range Interpretation Comments Calcium Lvl (test code = Calcium Lvl) 8.9 8.5-10.5 [place] 876702-03-26 05:44:00 Test Item Value Reference Range Interpretation Comments AGAP (test code = AGAP) 6.8 10.0-20.0 [place] 876702-03-26 05:44:00 Test Item Value Reference Range Interpretation Comments eGFR (test code = eGFR) 93 [place] 777062-03-26 05:44:00 Test Item Value Reference Range Interpretation Comments Segs (test code = Segs) 51.8 45.0-75.0 [place] 777062-03-26 05:44:00 Test Item Value Reference Range Interpretation Comments Lymphocytes (test code = Lymphocytes) 32.9 20.0-40.0 [place] 777062-03-26 05:44:00 Test Item Value Reference Range Interpretation Comments Monocytes (test code = Monocytes) 7.2 2.0-12.0 [place] [address]-03-26 05:44:00 Test Item Value Reference Range Interpretation Comments Eosinophils (test code = 6.4 See_Comment [A utomated message] The Eosinophils) system which ge nerated this result tra nsmitted reference range : <=4.0. The reference r kina was not used to int erpret this result as normal/abnormal . [place] 777062-03-26 05:44:00 Test Item Value Reference Range Interpretation Comments Basophils (test code = 1.7 See_Comment [Aut omated message] The Basophils) system which ge nerated this result tra nsmitted reference range : <=1.0. The reference r kina was not used to int erpret this result as normal/abnormal . [place] 777062-03-26 05:44:00 Test Item Value Reference Range Interpretation Comments Neutrophils # (test code = Neutrophils 4.9 1.5-8.1 #) [facility] 05:44:00 Test Item Value Reference Range Interpretation Comments Lymphocytes # (test code = Lymphocytes 3.1 1.0-5.5 #) [place] 777062-03-26 05:44:00 Test Item Value Reference Range Interpretation Comments Monocytes # (test code 0.7 See_Comment [Aut omated message] The = Monocytes #) system which generated this result tra nsmitted reference range : <=0.8. The reference r kina was not used to int erpret this result as normal/abnormal . [place] 777062-03-26 05:44:00 Test Item Value Reference Range Interpretation Comments Eosinophils # (test code 0.6 See_Comment [A utomated message] The = Eosinophils #) system whic h generated this result tra nsmitted reference range : <=0.5. The reference r kina was not used to int erpret this result as normal/abnormal . [facility]mlabhUWBBWSHXYJ3793-41-21 05:44:00 Test Item Value Reference Range Interpretation Comments Basophils # (test code 0.2 See_Comment [Aut omated message] The = Basophils #) system which generated this result tra nsmitted reference range : <=0.2. The reference r kina was not used to int erpret this result as normal/abnormal . [facility]SmtiwkwCYQOYFHJIA3078-97-38 05:44:00 Test Item Value Reference Range Interpretation Comments WBC (test code = WBC) 9.4 3.7-10.4 [place] 777062-03-26 05:44:00 Test Item Value Reference Range Interpretation Comments RBC (test code = RBC) 3.85 4.20-5.40 [place] 777062-03-26 05:44:00 Test Item Value Reference Range Interpretation Comments Hgb (test code = Hgb) 11.3 12.0-16.0 [place] [address]-03-26 05:44:00 Test Item Value Reference Range Interpretation Comments Hct (test code = Hct) 34.2 36.0-48.0 [place] 777062-03-26 05:44:00 Test Item Value Reference Range Interpretation Comments MCV (test code = MCV) 88.8 80.0-98.0 [place] 777062-03-26 05:44:00 Test Item Value Reference Range Interpretation Comments MCH (test code = MCH) 29.3 pg 27.0-31.0 [place] 777062-03-26 05:44:00 Test Item Value Reference Range Interpretation Comments MCHC (test code = MCHC) 33.0 32.0-36.0 [place] 777062-03-26 05:44:00 Test Item Value Reference Range Interpretation Comments RDW (test code = RDW) 13.7 11.5-14.5 [place] 777062-03-26 05:44:00 Test Item Value Reference Range Interpretation Comments Platelet (test code = Platelet) 312 133-450 [facility] HospitalJzsierkKRAUBWHPVP2072-98-46 05:44:00 Test Item Value Reference Range Interpretation Comments MPV (test code = MPV) 7.8 7.4-10.4 [facility]2022-03-24 05:21:00 Test Item Value Reference Range Interpretation Comments CO2 (test code = CO2) 29 24-32 [place] 876702-03-24 05:21:00 Test Item Value Reference Range Interpretation Comments Calcium Lvl (test code = Calcium Lvl) 7.9 8.5-10.5 [place] 876702-03-24 05:21:00 Test Item Value Reference Range Interpretation Comments AGAP (test code = AGAP) 7.8 10.0-20.0 [place] 876702-03-24 05:21:00 Test Item Value Reference Range Interpretation Comments eGFR (test code = eGFR) 90 [facility]FpedgbmFYNNBNDQIJ9458-93-42 05:21:00 Test Item Value Reference Range Interpretation Comments WBC (test code = WBC) 9.7 3.7-10.4 [place] 777062-03-24 05:21:00 Test Item Value Reference Range Interpretation Comments RBC (test code = RBC) 4.06 4.20-5.40 [facility]XghqjjkZBQEGQUTYA4234-74-22 05:21:00 Test Item Value Reference Range Interpretation Comments Hgb (test code = Hgb) 12.4 12.0-16.0 [place] 777062-03-24 05:21:00 Test Item Value Reference Range Interpretation Comments Hct (test code = Hct) 36.1 36.0-48.0 [place] 777062-03-24 05:21:00 Test Item Value Reference Range Interpretation Comments MCV (test code = MCV) 89.0 80.0-98.0 [place] 777062-03-24 05:21:00 Test Item Value Reference Range Interpretation Comments MCH (test code = MCH) 30.4 pg 27.0-31.0 [place] 777062-03-24 05:21:00 Test Item Value Reference Range Interpretation Comments MCHC (test code = MCHC) 34.2 32.0-36.0 [place] 777062-03-24 05:21:00 Test Item Value Reference Range Interpretation Comments RDW (test code = RDW) 13.8 11.5-14.5 [place] 777062-03-24 05:21:00 Test Item Value Reference Range Interpretation Comments Platelet (test code = Platelet) 250 133-450 [facility] HospitalInvorkxBBJHPZTQZT5703-21-08 05:21:00 Test Item Value Reference Range Interpretation Comments MPV (test code = MPV) 7.5 7.4-10.4 [place] 777062-03-24 05:21:00 Test Item Value Reference Range Interpretation Comments Segs (test code = Segs) 56.4 45.0-75.0 [place] 777062-03-24 05:21:00 Test Item Value Reference Range Interpretation Comments Lymphocytes (test code = Lymphocytes) 30.1 20.0-40.0 [place] 777062-03-24 05:21:00 Test Item Value Reference Range Interpretation Comments Monocytes (test code = Monocytes) 8.4 2.0-12.0 [place] 777062-03-24 05:21:00 Test Item Value Reference Range Interpretation Comments Eosinophils (test code = 4.6 See_Comment [A utomated message] The Eosinophils) system which ge nerated this result tra nsmitted reference range : <=4.0. The reference r kina was not used to int erpret this result as normal/abnormal . [place] 777062-03-24 05:21:00 Test Item Value Reference Range Interpretation Comments Basophils (test code = 0.5 See_Comment [Aut omated message] The Basophils) system which ge nerated this result tra nsmitted reference range : <=1.0. The reference r kina was not used to int erpret this result as normal/abnormal . [place] 777062-03-24 05:21:00 Test Item Value Reference Range Interpretation Comments Neutrophils # (test code = Neutrophils 5.5 1.5-8.1 #) [place] 777062-03-24 05:21:00 Test Item Value Reference Range Interpretation Comments Lymphocytes # (test code = Lymphocytes 2.9 1.0-5.5 #) [place] 777062-03-24 05:21:00 Test Item Value Reference Range Interpretation Comments Monocytes # (test code 0.8 See_Comment [Aut omated message] The = Monocytes #) system which generated this result tra nsmitted reference range : <=0.8. The reference r kina was not used to int erpret this result as normal/abnormal . [place] 777062-03-24 05:21:00 Test Item Value Reference Range Interpretation Comments Eosinophils # (test code 0.4 See_Comment [A utomated message] The = Eosinophils #) system ic h generated this result tra nsmitted reference range : <=0.5. The reference r kina was not used to int erpret this result as normal/abnormal . [place] 777062-03-24 05:21:00 Test Item Value Reference Range Interpretation Comments Basophils # (test code 0.1 See_Comment [Aut omated message] The = Basophils #) system which generated this result tra nsmitted reference range : <=0.2. The reference r kina was not used to int erpret this result as normal/abnormal . [facility] [id number] 05:21:00 Test Item Value Reference Range Interpretation Comments Glucose Lvl (test code = Glucose Lvl) 124 70-99 [facility] [id number] 05:21:00 Test Item Value Reference Range Interpretation Comments BUN (test code = BUN) 16 - [facility]2022-03-24 05:21:00 Test Item Value Reference Range Interpretation Comments Creatinine Lvl (test code = Creatinine 0.70 0.50-1.40 Lvl) [facility]2022-03-24 05:21:00 Test Item Value Reference Range Interpretation Comments Sodium Lvl (test code = Sodium Lvl) 141 135-145 [facility]2022-03-24 05:21:00 Test Item Value Reference Range Interpretation Comments Potassium Lvl (test code = Potassium 3.8 3.5-5.1 Lvl) [facility]2022-03-24 05:21:00 Test Item Value Reference Range Interpretation Comments Chloride Lvl (test code = Chloride Lvl) 108 95-109 [facility]2022-03-23 09:23:00 Test Item Value Reference Range Interpretation Comments Glucose Lvl (test code = Glucose Lvl) 123 70-99 [facility]2022-03-23 09:23:00 Test Item Value Reference Range Interpretation Comments BUN (test code = BUN) 20 10-12 [facility]2022-03-23 09:23:00 Test Item Value Reference Range Interpretation Comments Creatinine Lvl (test code = Creatinine 0.81 0.50-1.40 Lvl) [facility]2022-03-23 09:23:00 Test Item Value Reference Range Interpretation Comments Sodium Lvl (test code = Sodium Lvl) 140 135-145 [facility]2022-03-23 09:23:00 Test Item Value Reference Range Interpretation Comments Potassium Lvl (test code = Potassium 3.8 3.5-5.1 Lvl) [facility]2022-03-23 09:23:00 Test Item Value Reference Range Interpretation Comments Chloride Lvl (test code = Chloride Lvl) 106 95-109 [facility]2022-03-23 09:23:00 Test Item Value Reference Range Interpretation Comments CO2 (test code = CO2) 28 -32 [place] 876702-03-23 09:23:00 Test Item Value Reference Range Interpretation Comments Calcium Lvl (test code = Calcium Lvl) 8.3 8.5-10.5 [place] 876702-03-23 09:23:00 Test Item Value Reference Range Interpretation Comments AGAP (test code = AGAP) 9.8 10.0-20.0 [place] 876702-03-23 09:23:00 Test Item Value Reference Range Interpretation Comments eGFR (test code = eGFR) 76 [place] [address]-03-23 09:23:00 Test Item Value Reference Range Interpretation Comments Segs (test code = Segs) 63.1 45.0-75.0 [place] [address]-03-23 09:23:00 Test Item Value Reference Range Interpretation Comments Lymphocytes (test code = Lymphocytes) 26.3 20.0-40.0 [place] [address]-03-23 09:23:00 Test Item Value Reference Range Interpretation Comments Monocytes (test code = Monocytes) 7.7 2.0-12.0 [address]03-23 09:23:00 Test Item Value Reference Range Interpretation Comments Eosinophils (test code = 2.4 See_Comment [A utomated message] The Eosinophils) system which ge nerated this result tra nsmitted reference range : <=4.0. The reference r kina was not used to int erpret this result as normal/abnormal . [place] [address]-03-23 09:23:00 Test Item Value Reference Range Interpretation Comments Basophils (test code = 0.5 See_Comment [Aut omated message] The Basophils) system which ge nerated this result tra nsmitted reference range : <=1.0. The reference r kina was not used to int erpret this result as normal/abnormal . [place] 777062-03-23 09:23:00 Test Item Value Reference Range Interpretation Comments Neutrophils # (test code = Neutrophils 6.1 1.5-8.1 #) [place] [address]-03-23 09:23:00 Test Item Value Reference Range Interpretation Comments Lymphocytes # (test code = Lymphocytes 2.5 1.0-5.5 #) [place] [address]-03-23 09:23:00 Test Item Value Reference Range Interpretation Comments Monocytes # (test code 0.7 See_Comment [Aut omated message] The = Monocytes #) system which generated this result tra nsmitted reference range : <=0.8. The reference r kina was not used to int erpret this result as normal/abnormal . [place] 777062-03-23 09:23:00 Test Item Value Reference Range Interpretation Comments Eosinophils # (test code 0.2 See_Comment [A utomated message] The = Eosinophils #) system whic h generated this result tra nsmitted reference range : <=0.5. The reference r kina was not used to int erpret this result as normal/abnormal . [place] 777062-03-23 09:23:00 Test Item Value Reference Range Interpretation Comments Basophils # (test code 0.1 See_Comment [Aut omated message] The = Basophils #) system which generated this result tra nsmitted reference range : <=0.2. The reference r kina was not used to int erpret this result as normal/abnormal . [place] 777062-03-23 09:23:00 Test Item Value Reference Range Interpretation Comments WBC (test code = WBC) 9.7 3.7-10.4 [place] 777062-03-23 09:23:00 Test Item Value Reference Range Interpretation Comments RBC (test code = RBC) 4.03 4.20-5.40 [place] [address]-03-23 09:23:00 Test Item Value Reference Range Interpretation Comments Hgb (test code = Hgb) 12.2 12.0-16.0 [place] [address]-03-23 09:23:00 Test Item Value Reference Range Interpretation Comments Hct (test code = Hct) 35.9 36.0-48.0 [place] [address]-03-23 09:23:00 Test Item Value Reference Range Interpretation Comments MCV (test code = MCV) 89.2 80.0-98.0 [place] [address]-03-23 09:23:00 Test Item Value Reference Range Interpretation Comments MCH (test code = MCH) 30.4 pg 27.0-31.0 [place] 777062-03-23 09:23:00 Test Item Value Reference Range Interpretation Comments MCHC (test code = MCHC) 34.1 32.0-36.0 [place] [address]-03-23 09:23:00 Test Item Value Reference Range Interpretation Comments RDW (test code = RDW) 14.1 11.5-14.5 [facility] TylerVwicdkeZNZQEVCZLX3445-48-01 09:23:00 Test Item Value Reference Range Interpretation Comments Platelet (test code = Platelet) 255 133-450 [facility]joxjZSKEL[facility]XCNZ2194-08-85 09:23:00 Test Item Value Reference Range Interpretation Comments MPV (test code = MPV) 7.6 7.4-10.4 [facility]FastPayWH[facility] [id number] 07:11:00 Test Item Value Reference Range Interpretation Comments HS Troponin I 1 Hr (test code = HS 3 Troponin I 1 Hr) [facility]Son[facility] TechnologiesWH[facility] [id number] 07:11:00 Test Item Value Reference Range Interpretation Comments HS Troponin I 0 to 1 Hour Delta (test -1 code = HS Troponin I 0 to 1 Hour Delta) [facility] EWHGGCX0368-49-14 06:06:00 Test Item Value Reference Range Interpretation Comments HS Troponin I Baseline (test code = HS 4 Troponin I Baseline) [facility]Sava[facility] [id number] 10:51:00 Test Item Value Reference Range Interpretation Comments ABO/Rh (test code = ABO/Rh) O POS [facility] [employer] [id number] 10:51:00 Test Item Value Reference Range Interpretation Comments Antibody Scrn (test Negative (06/11/21 5:51 code = Antibody Scrn) AM) [facility] TylerCHEM [id number] 10:51:00 Test Item Value Reference Range Interpretation Comments Vitamin D, 25-OH, Total (test code = 43 Vitamin D, 25-OH, Total) [facility] TylerPARATHYROID [id number] 10:51:00 Test Item Value Reference Range Interpretation Comments PTH Intact (test code = PTH Intact) 76.8 18.4-80.1 [facility] TylerGunwqyiLAIOUWDLSJ0098-51-78 10:45:00 Test Item Value Reference Range Interpretation Comments Coronavirus (COVID-19) Not Detected (06/11/21 RICHARD (test code = 5:45 AM) Coronavirus (COVID-19) RICHARD) [facility] Notes Date/Time Note Provider Source 2021-06-16 EXAM: XR CHEST 1 VIEW [facility] 07:11:00-00:00 DATE: 06/16/2021 7:05 AM CDT Cent er INDICATION: Respiratory dist ress - evaluation for recurrence of pneumothorax after chest tube removal. COMPARISON: Chest x-ray dated June 15, 2021 TECHNIQUE: AP chest, portable radiograph IMPRESSION: 1. Cardiomediastinal silhouette is normal in siz e and contour. 2. Bilateral basilar and ret rocardiac subsegmental atelectasis are again noted. No definite pleural effusion. No perceptible pneumothorax. 3. Osseous structures are un changed. Degenerative changes are seen in the thoracic spine. 2021-06-15 EXAM: XR CHEST 1 VIEW [facility] 18:27:42-00:00 DATE: 06/15/2021 5:56 PM CDT [facility] INDICATION: Respiratory dist ress - chest tube pulled, and now evaluating if recurrence of pneumothorax. COMPARISON: Chest x-ray dated June 14, 2021 TECHNIQUE: AP chest, portable radiograph IMPRESSION: 1. Interval removal of right-sided pigtail danni ter. 2. Cardiomediastinal silhouette is normal in siz e and contour. 3. Bibasilar and retrocardia c subsegmental atelectasis are again noted. Low lung volumes causing vascular crowding. No definite pleural effusion. No perceptible pneumothorax. 4. Osseous structures are un changed. Degenerative changes are seen in the thoracic spine. Cholecystectomy clips are seen in the right upper quadrant of the abdomen. 2021-06-15 EXAM: CT CHEST WITHOUT CONTRAST [facility] 15:15:00-00:00 DATE: 06/15/2021 12:[address] INDICATION: - Evaluation for chest tube removal. TECHNIQUE: Volumetric CT acq uisition of the chest without contrast. Axial, sagittal and coronal reconstructions. Axial MIP reconstructions are created at the acquisition workstation. IV contrast: None. DLP: 527 mGy-cm COMPARISON: 06/13/2021 FINDINGS: Lines and tubes: Interval pl acement of right anterior pleural pigtail catheter through the right second intercostal space with interval significant decrease in the previously seen right pneumothorax with residual tiny anterior component. Lower neck: Visualized porti on of the thyroid gland is unremarkable. Small lower neck soft tissue emphysema is noted. Axilla: Clear. Airway: Interval development of posterior diverticulum from the posterior aspect of the mid trachea measuring approximately 10 mm in diameters (series 2, image 35). Lungs and pleura: Interval s ignificant decrease in the pneumothoraces bilaterally with residual tiny anterior right and small apical left components. Mild bibasilar subsegmental compressive atelectasis. Interval better aeration of the previously seen collapsed lower lobes. No pleural effusion. Mediastinum, anat and intrat horacic lymph nodes: No pathologically enlarged lymph nodes. Small residual pneumomediastinum is noted. Heart, pericardium and great vessels: No cardiomegaly. No pericardial effusion. No significant coronary artery calcifications. Mild aortic atherosclerotic disease. Normal size of the ascending aorta and main pulmonary artery. Upper abdomen: Decreased hep atic parenchymal attenuation. Cholecystectomy clips visualized within the gallbladder fossa. The pancreatic parenchyma is diffusely atrophied, without focal lesion identified. Bones and soft tissue: No ac afognak or suspicious abnormality. Mild multilevel degenerative changes of thoracolumbar spine with endplate changes. Small anterior chest wall soft tissue emphysema. IMPRESSION: 1. Interval significant decr ease in the pneumothoraces bilaterally with residual tiny anterior right and small apical left components. 2. Mild bibasilar subsegment al compressive atelectasis. Interval better aeration of the previously seen collapsed lower lobes. 3. Interval placement of right anterior pleural pigtail catheter. 4. Interval development of p osterior diverticulum from the posterior aspect of the mid trachea measuring approximately 10 mm in diameters. 5. Other chest CT findings are stable compared t o previous study. 2021-06-14 EXAM: XR CHEST 1 VIEW [facility] 07:56:00-00:00 DATE: 06/14/2021 0756 hours Cente r INDICATION: Absent of breath sounds - Evaluation of pneumothorax progression after chest tube COMPARISON: Chest radiograph 06/13/2021 TECHNIQUE: AP chest. FINDINGS: Lines, tubes and hardware: S table right pigtail pleural drain, which remains in the medial aspect of the right hemithorax. Lungs and pleura: Pulmonary vascularity is normal. Improved aeration of bilateral lung webb, with subsegmental atelectasis seen in bilateral mid lungs and bibasilar regions. Slight blunting of the lef t costophrenic sulcus may re present trace left pleural effusion. Interval decrease in size of trace bilateral apical pneumothoraces. Heart and mediastinum: The h eart size is normal. Vascular calcifications are present at the aorta. Bones and soft tissues: Near complete resolution of subcutaneous emphysema which is previously visualized over bilateral lower neck. IMPRESSION: 1. Interval decrease in size of trace bilateral apical pneumothoraces. 2. Improved aeration of bila teral lung webb with scattered platelike atelectasis in bilateral mid lung and bibasilar regions. 3. Trace left pleural effusion. 2021-06-13 EXAM: XR CHEST 1 VIEW [facility] 13:10:48-00:00 DATE: 06/13/2021 12:[address] INDICATION: - s/p chest tube for PTX COMPARISON: 06/13/2021 TECHNIQUE: AP chest IMPRESSION: Interval placement of right pigtail pleural catheter and decrease in volume of now small right pneumothorax. Small to moderate left pneumothorax noted. Lung volumes are low. This produces spurious widen ing of the transverse diamet er of the heart and mediastinum and crowding of the basal lung markings. Bibasilar atelectasis with possible post consolidation. No definitive pleural effusions. Improved pne umomediastinum and subcutane ous emphysema in the bilateral lower neck. Stable osseous structures. CONCLUSION: 1. Decreased now small right pneumothorax following placement of right pigtail pleural catheter. 2. Improved pneumomediastinum and subcutaneous e mphysema in the lower neck. 2021-06-13 PROCEDURE: Chest tube placement [facility] 11:09:00-00:00 Attending physician(s): Bj Chambers MD Center Fellow/resident physician(s): Loco Hoover MD Pre-procedure diagnosis: pneumothorax Post-procedure diagnosis: pneumothorax Indication: Pneumothorax Additional relevant history: None COMPARISON: None PROCEDURE SUMMARY: 1. Placement of pleural drainage catheter under CT guidance FINDINGS: Successful CT guided placement of right sided ch est tube. IMPRESSION: Successful right-sided 10 Swedish chest tube plac ement. Plan: Keep catheter attached to ch est tube apparatus under low continuous wall suction (-20 cmH2O). IR follow-up as needed. PROCEDURE DESCRIPTION The benefits, risks, and alt ernatives to the procedure and sedation were fully discussed and informed consent was obtained. Pre-procedure assessment was performed, which documented that the patient was an appropriate candidate for fentanyl only. Total intra-service time was 30 minutes. The patient was brought into the interventional suite and a pre-procedure time- out was performed. During the time-out, the patient's name, medical record number, site of procedure, and type of procedure were verified. The patient was placed in the supine position on the procedure table. The anticipated puncture site was prepped and draped in the usual sterile fashion and maximum sterile barri er precautions were maintained throughout the pr ocedure. CHEST TUBE PLACEMENT Initial imaging was performed using noncontrast CT. An appropriate percutaneous trajectory was determined for the right pleural space. Local anesthesia was administered with 1% lidocaine. Under continuous imaging guidance, the pleural space was accessed using 21-gauge micropuncture needle and introducer sheath. Position within the pleural space was confirmed with image guidance, with images saved and stored in PACS. A stiff wire was advanced th rough the needle, the needle was removed, and using image-guidance, a 10.2 Swedish multipurpose drainage catheter was carefully advanced over wire into the pleural space. The wire and inner stiffener wer e removed and the pigtail was formed. The catheter was carefully sutured in place with a 2-0 Prolene suture and placed to a chest tube apparatus. A sterile dressing was placed around the drain site. The patient tolerated the pr ocedure well and was discharged from the interventional suite in stable condition. Special equipment used: None Complications: No immediate complications. Estimated blood loss (mL): Less than [address] dose length product (mGy-cm): 320 Attestation Signer name: Bj Chambers MD I attest that I was present for the entire procedure. I reviewed the stored images and agree with the report as written. 2021-06-13 PROCEDURE: Chest tube placement [facility] 06:30:39-00:00 Attending physician(s): Bj Chambers MD Center Fellow/resident physician(s): Loco Hoover MD Pre-procedure diagnosis: pneumothorax Post-procedure diagnosis: pneumothorax Indication: Pneumothorax Additional relevant history: None COMPARISON: None PROCEDURE SUMMARY: 1. Placement of pleural drainage catheter under CT guidance FINDINGS: Successful CT guided placement of right sided ch est tube. IMPRESSION: Successful right-sided 10 Swedish chest tube plac ement. Plan: Keep catheter attached to ch est tube apparatus under low continuous wall suction (-20 cmH2O). IR follow-up as needed. PROCEDURE DESCRIPTION The benefits, risks, and alt ernatives to the procedure and sedation were fully discussed and informed consent was obtained. Pre-procedure assessment was performed, which documented that the patient was an appropriate candidate for fentanyl only. Total intra-service time was 30 minutes. The patient was brought into the interventional suite and a pre-procedure time- out was performed. During the time-out, the patient's name, medical record number, site of procedure, and type of procedure were verified. The patient was placed in the supine position on the procedure table. The anticipated puncture site was prepped and draped in the usual sterile fashion and maximum sterile barri er precautions were maintained throughout the pr ocedure. CHEST TUBE PLACEMENT Initial imaging was performed using noncontrast CT. An appropriate percutaneous trajectory was determined for the right pleural space. Local anesthesia was administered with 1% lidocaine. Under continuous imaging guidance, the pleural space was accessed using 21-gauge micropuncture needle and introducer sheath. Position within the pleural space was confirmed with image guidance, with images saved and stored in PACS. A stiff wire was advanced th rough the needle, the needle was removed, and using image-guidance, a 10.2 Swedish multipurpose drainage catheter was carefully advanced over wire into the pleural space. The wire and inner stiffener wer e removed and the pigtail was formed. The catheter was carefully sutured in place with a 2-0 Prolene suture and placed to a chest tube apparatus. A sterile dressing was placed around the drain site. The patient tolerated the pr ocedure well and was discharged from the interventional suite in stable condition. Special equipment used: None Complications: No immediate complications. Estimated blood loss (mL): Less than [address] dose length product (mGy-cm): 320 Attestation Signer name: Bj Chambers MD I attest that I was present for the entire procedure. I reviewed the stored images and agree with the report as written. 2021-06-13 [facility] DATE: 06/13/2021 4:00 AM CDT [facility] INDICATION: - following bilat PTX/pneumomediasti num COMPARISON: 06/12/2021 TECHNIQUE: AP chest IMPRESSION: Redemonstration of diffuse s ubcutaneous emphysema in the bilateral lower neck and pneumomediastinum. Stable moderate sized bilateral pneumothoraces, right greater than left. The right pneumothorax is ci rcumferential with apical, l ateral and basilar components. Bibasilar atelectasis with possible superimposed aspiration or pneumonia. Stable cardiomediastinal silhouette. Stable osseous structures. CONCLUSION: Stable moderate sized bilateral pneumothoraces, right greater than left. Persistent diffuse densities in the bilateral lower neck and pneumomediastinum. 2021-06-12 EXAM: [facility]47[facility]00 DATE: 06/12/2021 16:52 CDT Center INDICATION: - following PTX, awaiting chest tube COMPARISON: Chest x-ray from 06/12/2021 at 1059 h ours TECHNIQUE: AP chest. FINDINGS: Lines, tubes and hardware: None. Lungs and pleura: Bibasilar atelectasis. The costophrenic sulci are sharp without effusion. Right greater than left bilateral pneumothoraces are again redemonstrated and may be stable/mildly improving and differences may be due to technique. Heart and mediastinum: The h eart size is normal. Mildly increased subcutaneous emphysema and pneumomediastinum. Bones and soft tissues: No acute abnormality. IMPRESSION: 1. Moderate sized right grea ter than left bilateral pneumothoraces which may be stable/mildly improving according to differences in technique. 2. Extensive pneumomediastinum and subcutaneous emphysema of the lower neck. [place] SECTION: Chest 2021-06-12 EXAM: [facility] 10[facility]59[facility]00[facility]00:00 DATE: 06/12/2021 10:[address] INDICATION: - Evaluation for pneumothorax COMPARISON: 06/12/2021 TECHNIQUE: AP chest IMPRESSION: Increased bilateral pneumoth oraces, moderate to large on the right and moderate volume on the left. Redemonstration of diffuse subcutaneous emphysema in the bilateral lower neck and pneumomediastinum. S table cartilage mediastinal silhouette. Stable elevation of the right hemidiaphragm. Bibasilar atelectasis with possible superimposed consolidation. Stable osseous structures. CONCLUSION: 1. Increased bilateral pneumothoraces, greater o n the right. 2. Other stable findings as described above. A critical finding is presen t on this examination. The interpreting radiologist has activated the Primordial Findings workflow to notify the ordering physician on 06/12/2021 11:41 AM CDT. Findings were c onveyed to the clinical team, Mor Murray on 06/12/2021 11:50 AM CDT. 2021-06-12 EXAM: XR CHEST 1 VIEW [facility] 08:15:00-00:00 DATE: 06/12/2021 7:00 CDT Center INDICATION: - pneumothorax and pneumomediastinum postop COMPARISON: CTA chest from the same day and ches t x-ray from 06/11/2021 TECHNIQUE: AP chest IMPRESSION: Stable cardiomed iastinal silhouette. Persistent diffuse pneumomediastinum. Progressive now moderate right pneumothorax. Small left pneumothorax. Persistent bilateral retrocardiac and infrahi lar opacities which could re present combination of atelectasis, pneumonia or aspiration. Regional skeleton is unchanged. Extensive subcutaneous emphysema in the lower neck/upper chest wall region. CONCLUSION: 1. Progression of a now moderate right pneumotho rax. 2. Other findings as described above. Dr. Neptali Murray was informed about findings on at 10:45 AM CDT 2021-06-12 EXAM: CTA CHEST WITH CONTRAST [facility] 00:31:31-00:00 DATE: 06/11/2021 0000 hours Cent[facility] r INDICATION: - postop femur fracture, tachy requi ring 2L ADDITIONAL INFORMATION: 65-y ear-old female who presented status post mechanical fall. COMPARISON: Chest radiograph 06/11/2021 TECHNIQUE: Volumetric CT of the chest is acquired during pulmonary arterial phase following intravenous administration of contrast. Axial, sagittal, coronal, and oblique MIP reconstructions are created at the acquisition workstati on. Exam quality limited by inability to breathhold. IV contrast: Refer to MAR/medical technologist chief tata jin DLP (mGy-cm): Please see detailed CT protocol re port for further details. FINDINGS: Lines and tubes: None. Lower neck: Marked pneumomed iastinum extending from the lower neck to the level of the diaphragmatic hiatus/retrocrural region. Axilla: Clear. Airway: Clear. Lungs and pleura: Mild bibas ilar subsegmental compressive atelectasis. Scattered bibasilar patchy airspace. Bilateral small volume pneumothoraces. No pleural effusion. Mediastinum, anat and intrat horacic lymph nodes: No pathologically enlarged lymph nodes. Heart, pericardium and great vessels: Pulmonary emboli: No pulmona ry embolus is identified to the subsegmental level. Pulmonary trunk: 2.4 cm Ascending aorta: 2.3 cm Heart: Extensive pneumomedia stinum surrounding the heart. No right heart strain. RV:LV ratio is 0.9 (Normal <1) Pericardium: No pericardial fluid. Upper abdomen: Decreased hep atic parenchymal attenuation. Cholecystectomy clips visualized within the gallbladder fossa. The pancreatic parenchyma is diffusely atrophied, without focal lesion identified. Bones: No acute or suspiciou s abnormality. Mild multilevel degenerative changes of thoracolumbar spine with endplate changes. IMPRESSION: 1. No pulmonary embolism. No CT evidence of righ t heart strain. 2. Small-volume bilateral pn eumothoraces and extensive pneumomediastinum extending from the visible lower neck to the level of the diaphragmatic hiatus/retrocrural region. 3. Scattered patchy opacitie s in the lower lobes may represent microatelectatic changes but cannot rule out aspiration/infectious or inflammatory process. 2021-06-11 EXAM: Chest 1view DX [facility]ical 23:24:00-00:00 DATE: 06/11/2021 11:[address] [address] INDICATION: - chest wall tenderness ADDITIONAL HISTORY: Status post fall. COMPARISON: None. TECHNIQUE: Portable AP semierect chest with a to sofi of 1 image(s). FINDINGS: Lines, tubes, devices: Numerous cardiac monitori ng leads overlie the chest. Lungs: The lung volumes are diminished with bibasilar patchy and streaky opacities. Pleura: There is a trace lef t apical pneumothorax. There is no pleural effusion identified given the technique. Heart and mediastinum: There is pneumomediastinum extending from the base of the neck toward the superior mediastinum outlining the aortic arch. The heart size is normal for technique. The pulmonary vas culature is normal. The mediastinal contours are otherwise normal. Bones: No acute bony abnormality is identified. Soft Tissue: There is subcut aneous emphysema at the base of the neck bilaterally. There is mild gaseous distention of the stomach. IMPRESSION: 1. Subcutaneous emphysema at the base of the neck bilaterally with pneumomediastinum outlining the aortic arch and a trace left apical pneumothorax. 2. Diminished lung volumes w ith bibasilar atelectatic changes, although infection or aspiration are not excluded. Critical findings of pneumom ediastinum and pneumothorax were communicated to and acknowledged by Nurse River via telephone at 06/11/2021 11:54 PM CDT by Stoney Whalen MD. 2021-06-11 EXAM: XR RIGHT HIP 2 VIEW AND AP PELVIS [facility] 06:00:00-00:00 EXAM: XR RIGHT FEMUR [address] [address] EXAM: XR RIGHT KNEE 3 VIEWS DATE: 06/11/2021 at 0617 hours INDICATION: Pain after trauma COMPARISON: Right hip radiographs 06/10/2021, rig ht hip CT 06/11/2021 TECHNIQUE: AP pelvis, 2 view hip, 2 views of the femur, 3 views of the knee FINDINGS: Pelvis/Hip: No acute fractur e or malalignment is identified. Marginal osteophyte formation and mild narrowing is seen at the hips bilaterally. Lumbar spondylosis is present at L4-S1. Femur: There is a nondisplac ed basicervical right femoral neck fracture. No additional fracture or malalignment of the femur is identified. Knee: No acute fracture or m alalignment is identified. No knee joint effusion is present. Small patellar and medial compartment osteophytes. There is marginal sclerosis and narrowing at the medial femoral tibial joint space of the right knee. Soft tissues: No soft tissue abnormality is iden tified. IMPRESSION: 1. Nondisplaced basicervical right femoral neck fracture. 2. There is no additional ac [place] osseous abnormality of the pelvis, right hip, right femur, or right knee. 3. Osteoarthritis of the right knee in the hips bilaterally. 4. Lumbar spondylosis. UT SECTION: ER 2021-06-11 EXAM: XR RIGHT HIP 2 VIEW AND AP PELVIS [facility] 06:00:00-00:00 EXAM: XR RIGHT FEMUR [address] EXAM: XR RIGHT KNEE 3 VIEWS DATE: 06/11/2021 at 0617 hours INDICATION: Pain after trauma COMPARISON: Right hip radiographs 06/10/2021, rig ht hip CT 06/11/2021 TECHNIQUE: AP pelvis, 2 view hip, 2 views of the femur, 3 views of the knee FINDINGS: Pelvis/Hip: No acute fractur e or malalignment is identified. Marginal osteophyte formation and mild narrowing is seen at the hips bilaterally. Lumbar spondylosis is present at L4-S1. Femur: There is a nondisplac ed basicervical right femoral neck fracture. No additional fracture or malalignment of the femur is identified. Knee: No acute fracture or m alalignment is identified. No knee joint effusion is present. Small patellar and medial compartment osteophytes. There is marginal sclerosis and narrowing at the medial femoral tibial joint space of the right knee. Soft tissues: No soft tissue abnormality is iden tified. IMPRESSION: 1. Nondisplaced basicervical right femoral neck fracture. 2. There is no additional ac [place] osseous abnormality of the pelvis, right hip, right femur, or right knee. 3. Osteoarthritis of the right knee in the hips bilaterally. 4. Lumbar spondylosis. UT SECTION: ER 2021-06-11 EXAM: XR RIGHT HIP 2 VIEW AND AP PELVIS [facility] 06:00:00-00:00 EXAM: XR RIGHT FEMUR [address] [address] EXAM: XR RIGHT KNEE 3 VIEWS DATE: 06/11/2021 at 0617 hours INDICATION: Pain after trauma COMPARISON: Right hip radiographs 06/10/2021, rig ht hip CT 06/11/2021 TECHNIQUE: AP pelvis, 2 view hip, 2 views of the femur, 3 views of the knee FINDINGS: Pelvis/Hip: No acute fractur e or malalignment is identified. Marginal osteophyte formation and mild narrowing is seen at the hips bilaterally. Lumbar spondylosis is present at L4-S1. Femur: There is a nondisplac ed basicervical right femoral neck fracture. No additional fracture or malalignment of the femur is identified. Knee: No acute fracture or m alalignment is identified. No knee joint effusion is present. Small patellar and medial compartment osteophytes. There is marginal sclerosis and narrowing at the medial femoral tibial joint space of the right knee. Soft tissues: No soft tissue abnormality is iden tified. IMPRESSION: 1. Nondisplaced basicervical right femoral neck fracture. 2. There is no additional ac [place] osseous abnormality of the pelvis, right hip, right femur, or right knee. 3. Osteoarthritis of the right knee in the hips bilaterally. 4. Lumbar spondylosis. UT SECTION: ER 2021-06-11 EXAM: CT RIGHT HIP WITHOUT CONTRAST [facility] 05:10:59-00:00 EXAM: 3-D REFORMATTED IMAGES [facility] DATE: 06/11/2021 at 0518 hours INDICATION: - femoral neck fx fall ttp COMPARISON: Same day outside CT, radiograph 06/10 TECHNIQUE: Volumetric CT of the hip is acquired without contrast. Axial, coronal and sagittal images are provided. 3-D volume rendered imaging of the pelvis is also provided from the acquisition workstation. IV contrast: None. DLP: Refer to CT protocol form FINDINGS: Platform Power Technician: Noncontributory. Pelvis/Acetabulum: No acute fracture or malalignment. Small nonspecific bone fragment in the region of the anterior, superior labrum likely represents an intralabral ossicle. Femur: Redemonstration of a mildly impacted fracture through the femoral neck extending from the subcapital region posterolaterally to the basicervical region anteromedially. Soft tissues: No significant soft tissue swelling. No radiopaque foreign body or subcutaneous emphysema. No pneumarthrosis. IMPRESSION: Minimally displaced, impacte d fracture through the right femoral neck extending from the subcapital region posterolaterally to the basicervical region anteromedially
[2022-09-14] MEDS ORDERED: PANTOPRAZOLE 40 MG INJ ONE (16:15)
[2022-09-14] MEDS ORDERED: NA CHLORIDE 0.9% 1,000 ML ONE (16:15)
[2022-09-14] MEDS ORDERED: ONDANSETRON 4 MG/2 ML VIAL ONE ×2 (16:15→17:12)
[2022-09-14 16:28] LABS: Absolute Lymphocytes (CBC) 1.8 K/uL (0.7-4.9); Hematocrit 43.9 % (36.0-45.0); MCV 86.8 fL (80-100); MPV 7.2 fL (7.6-11.3); RBC Red Blood Cell Count 5.05 M/uL (3.86-4.86)
[2022-09-14 16:39] LABS: Protime INR 0.88
[2022-09-14 16:48] LABS: Albumin 3.1 g/dL (3.4-5.0); Bilirubin Direct 0.1 mg/dL (0-0.2); Bilirubin Indirect, Calculated 0.3 mg/dL (0.2-0.8); Bilirubin Total 0.4 mg/dL (0.2-1.0); Magnesium 2.2 mg/dL (1.6-2.4); Potassium 3.6 mEq/L (3.5-5.1); Protein, Total 7.3 g/dL (6.4-8.2); Troponin High Sensitivity 3.5 pg/mL (<58.9)
--- NOTE | 2022-09-14 16:53 | RAD REPORT ---
EXAM DESCRIPTION: [facility] Single View09/14/2022 4:39 pm CLINICAL HISTORY: Abdominal pain COMPARISON: 2013 FINDINGS: The lungs appear clear of acute infiltrate. The heart is normal size IMPRESSION: No acute abnormalities displayed
[2022-09-14 17:20] LABS: Specific Gravity 1.007 (1.005-1.030); Urine Bacteria <20 /HPF (<20); Urine Bilirubin NEGATIVE (Negative); Urine Blood Trace (Negative); Urine Clarity Clear (Clear); Urine Color Light-Yellow (Yellow); Urine Glucose NEGATIVE (Negative); Urine Protein NEGATIVE (Negative); Urine RBC <5 /HPF (None Seen); Urine Urobilinogen Normal (Normal); Urine pH 5.5 (5.0-7.0)
--- NOTE | 2022-09-14 17:27 | RAD REPORT ---
EXAM DESCRIPTION: CT - Abdomen Pelvis Wo Contrast - 09/14/2022 5:14 pm CLINICAL HISTORY: Abdominal pain COMPARISON: None TECHNIQUE: Computed axial tomography of the abdomen and pelvis was obtained. IV and oral contrast we re not requested. All CT scans are performed using dose optimization technique as appropriate and may include automated exposure control or mA/KV adjustment according to patient size. FINDINGS: The evaluation of solid organs, vessels and bowel is limited secondary to the lack of con trast administration. The liver, spleen, pancreas, adrenals and kidneys appear grossly normal. The appendix is normal. Cholecystectomy. Hysterectomy. No adnexal mass There is no evidence of diverticulitis. Mild dilatation all of small bowel. Fluid is present within m ildly dilated small bowel. Fluid is present within right colon. The colon is normal caliber Small umbilical hernia IMPRESSION: These findings probably indicate either an enteritis or adynamic ileus. If the patient's symptoms persist a followup abdominal plain film series would be recommended
[2022-09-14] MEDS ORDERED: LOPERAMIDE HCL 2 MG CAPSULE ONE (18:18)
[2022-09-14] MEDS ORDERED: DICYCLOMINE HCL 20 MG/2 ML AMP IM ONE (18:45)
--- NOTE | 2022-09-14 19:25 | ER ---
Nurse's Notes [facility] Name: Perlita Zapata Age: 66 yrs Sex: Female : 1955 Arrival Date: 09/14/2022 Time: 15:22 Bed 15 Private MD: Diagnosis: Nausea with vomiting, unspecified;Diarrhea, unspecified;Abdominal pain, unspecified Presentation: 09/14 15:31 Chief complaint: EMS states: ABDOMINAL PAIN N/V X 2 DAYS AFTER EATING CABBAGE 2 DAYS db AGO. SOB STARTED YESTERDAY THAT COMES AND GOES. UPPER RIGHT ABDOMINAL PAIN /. Initial Sepsis Screen: Does the patient meet any 2 criteria? No. Patient's initial sepsis screen is negative. Does the patient have a suspected source of infection? No. Patient's initial sepsis screen is negative. Risk Assessment: Do you want to hurt yourself or someone else? Patient reports no desire to harm self or others. Onset of symptoms was September 14, 2022. 15:31 Method Of Arrival: EMS: [facility] db 15:31 Acuity: PAULA 2 db 15:40 Ebola Screen: Patient negative for fever greater than or equal to 101.5 degrees db Fahrenheit, and additional compatible Ebola Virus Disease symptoms Patient denies exposure to infectious person. Patient denies travel to an Ebola-affected area in the 21 days before illness onset. No symptoms or risks identified at this time. 18:14 Coronavirus screen: Client denies travel out of the [place] in the last 14 days. At this db time, the client does not indicate any symptoms associated with coronavirus-19. Triage Assessment: 16:00 General: Appears in no apparent distress. comfortable, Behavior is calm, cooperative. db Pain: Complains of pain in abdomen. Neuro: Level of Consciousness is awake, alert, obeys commands, Oriented to person, place, time, situation. GI: Abdomen is flat, non-distended, Reports lower abdominal pain, cramping, diarrhea, nausea, vomiting. Historical: - Allergies: 15:32 shrimp; db 15:32 Codeine; db - PSHx: 15:32 Cholecystectomy; db - Immunization history:: Adult Immunizations unknown. - Social history:: Smoking status: Patient denies any tobacco usage or history of. Screenin:09 [facility] ED Fall Risk Assessment (Adult) History of falling in the last 3 months, db including since admission No falls in past 3 months (0 pts) Confusion or Disorientation No (0 pts) Intoxicated or Sedated No (0 pts) Impaired Gait No (0 pts) Mobility Assist Device Used No (0 pt) Altered Elimination No (0 pt) Score/Fall Risk Level 0 - 2 = Low Risk Oriented to surroundings, Maintained a safe environment. Abuse screen: Denies threats or abuse. Denies injuries from another. Nutritional screening: No deficits noted. Tuberculosis screening: No symptoms or risk factors identified. Assessment: 16:12 Reassessment: Patient appears in no apparent distress at this time. Patient and/or db family updated on plan of care and expected duration. Pain level reassessed. Patient is alert, oriented x 3, equal unlabored respirations, skin warm/dry/pink. ABDOMINAL PAIN N/V DENIES DIARRHEA. General: Appears in no apparent distress. uncomfortable, Behavior is calm, cooperative. Pain: Complains of pain in abdomen. Neuro: Level of Consciousness is awake, alert, obeys commands, Oriented to person, place, time, situation. GI: Bowel sounds Abd is soft Abdomen is tender to palpation GENERALIZED. 17:05 Reassessment: Patient and/or family updated on plan of care and expected duration. Pain db level reassessed. PATIENT REPORTS N/V. NOTIFIED PROVIDER JI PINEDO PATIENT IS VOMITING. NEW ORDER FOR ZOFRAN RECEIVED. PATIENT THEN TAKEN TO CT. 18:13 Reassessment: PATIENT PROVIDED CRACKERS AND JENNIFER MAR FOR PO CHALLENGE. db 18:48 Reassessment: patient tolerated some crackers and some jennifer mar. Denies Vomiting. db 19:05 Reassessment: Report given to shift boss RN. db Vital Signs: 15:31 BP 145 / 97; Pulse 93; Resp 16; Temp 98.1(O); Pulse Ox 98% ; db 15:35 Weight 71.21 kg; Height 4 ft. 10 in. ; db 16:00 BP 128 / 68; Pulse 86; Resp 18; Pulse Ox 99% on R/A; db 16:30 BP 144 / 73; Pulse 87; Resp 16; Pulse Ox 95% on R/A; db 17:38 BP 137 / 59; Pulse 95; Resp 18; Pulse Ox 96% on R/A; db 18:00 BP 119 / 65; Pulse 96; Resp 16; Pulse Ox 99% on R/A; db 18:30 BP 128 / 55; Pulse 99; Resp 16; Pulse Ox 99% ; db 19:43 BP 136 / 66; Pulse 99; Resp 18; Pulse Ox 97% on R/A; kl 15:35 Body Mass Index 32.81 (71.21 kg, 147.32 cm) db ED Course: 15:30 Patient arrived in ED. db 15:32 Jeb Nance MD is Attending Physician. katia 15:32 Triage completed. db 15:33 Arm band placed on Patient placed in an exam room. db 15:36 Jeb Still PA is PHCP. cp 16:08 Inserted saline lock: 22 gauge in right antecubital area, using aseptic technique. db Blood collected. 16:10 Zoila Bernal, RN is Primary Nurse. db 16:41 XRAY Chest (1 view) In Process Unspecified. EDMS 17:10 Patient has correct armband on for positive identification. Bed in low position. Call db light in reach. Side rails up X2. Pulse ox on. NIBP on. Warm blanket given. 17:16 Abdomen In Process Unspecified. EDMS 18:15 No provider procedures requiring assistance completed. db 19:49 IV discontinued, intact, bleeding controlled, No redness/swelling at site. Pressure kl dressing applied. Administered Medications: 15:36 CANCELLED (Physician Discretion): NS 0.9% IV 1000 ml IV at 1 bolus Per protocol; 1000 cp mL bolus 15:39 CANCELLED (Physician Discretion): Famotidine IVP 20 mg IVP once; dilute with 10 mL 0.9% cp NaCl; give over 2 minutes 16:18 Drug: Ondansetron IVP 4 mg Route: IVP; Site: right antecubital; db 16:51 Follow up: Response: No adverse reaction db 16:18 Drug: NS 0.9% IV 1000 ml Route: IV; Rate: 500 ml/hr; Site: right antecubital; db 16:18 Drug: Pantoprazole IVP 40 mg Route: IVP; Site: right antecubital; db 16:51 Follow up: Response: No adverse reaction db 17:04 Drug: Ondansetron IVP 4 mg Route: IVP; Site: right antecubital; db 18:04 Follow up: Response: No adverse reaction db 18:12 Drug: Loperamide PO 2 mg Route: PO; db 18:40 Drug: Dicyclomine IM 20 mg Route: IM; Site: left deltoid; db 19:35 Drug: Ketorolac IVP 15 mg Route: IVP; Site: right antecubital; kl 19:42 Follow up: Response: No adverse reaction kl Medication: 18:15 VIS not applicable for this client. db Outcome: 19:25 Discharge ordered by . chinmay 19:49 Discharged to home via wheelchair, with family. kl 19:49 Condition: improved 19:49 Discharge instructions given to patient, family, Instructed on discharge instructions, follow up and referral plans. medication usage, Demonstrated understanding of instructions, follow-up care, medications, Prescriptions given X 3. 19:49 Patient left the ED. kl Signatures: Dispatcher [employer] EDLou Dumont RN RN Jeb Guevara MD MD cha Page, Corey, PA PA Zoila Huynh, RN RN db Corrections: (The following items were deleted from the chart) 18:14 18:14 Immunization history: Client reports receiving the 1st dose of the Covid vaccine, db db
--- NOTE | 2022-09-14 19:25 | EDPHYS ---
Physician Documentation [facility] Name: Perlita Zapata Age: 66 yrs Sex: Female : 1955 Arrival Date: 09/14/2022 Time: 15:22 Bed 15 Private MD: ED Physician Jeb Nance HPI: 09/14 15:40 This 66 yrs old Female presents to ER via EMS with complaints of Abdominal cp Pain. 15:40 The patient presents with abdominal pain in the upper abdomen. cp 15:40 Onset: The symptoms/episode began/occurred 2 day(s) ago. Associated signs and symptoms: cp Pertinent positives: nausea and vomiting, anorexia, chest pain, diarrhea, Pertinent negatives: blood in stools, dysuria, fever, vomiting blood. The symptoms are described as waxing/waning. Severity of pain: in the emergency department the pain is unchanged despite home interventions. Patient reports eating cabbage that she cooked at home 2 days ago prior to symptoms starting. Historical: - Allergies: 15:32 shrimp; db 15:32 Codeine; db - PSHx: 15:32 Cholecystectomy; db - Immunization history:: Adult Immunizations unknown. - Social history:: Smoking status: Patient denies any tobacco usage or history of. ROS: 15:45 Constitutional: Negative for body aches, chills, fever, poor PO intake. cp 15:45 Eyes: Negative for injury, pain, redness, and discharge. cp 15:45 ENT: Negative for drainage from ear(s), ear pain, sore throat, difficulty swallowing, cp difficulty handling secretions. 15:45 Cardiovascular: Positive for chest pain, Negative for edema, palpitations. 15:45 Respiratory: Positive for shortness of breath, Negative for cough, wheezing. 15:45 Abdomen/GI: Positive for abdominal pain, nausea and vomiting, diarrhea, anorexia, Negative for constipation, hematemesis, black/tarry stool, rectal bleeding. 15:45 Back: Negative for pain at rest, pain with movement. 15:45 Neuro: Positive for weakness, Negative for altered mental status, dizziness, headache. 15:45 All other systems are negative. Exam: 15:50 Constitutional: The patient appears in no acute distress, alert, awake, cp non-diaphoretic, non-toxic, well developed, well nourished, uncomfortable. 15:50 Head/Face: Normocephalic, atraumatic. cp 15:50 Eyes: Periorbital structures: appear normal, Conjunctiva: normal, no exudate, no injection, Sclera: no appreciated abnormality, Lids and lashes: appear normal, bilaterally. 15:50 ENT: External ear(s): are unremarkable, Nose: is normal, Mouth: Lips: moist, Oral mucosa: pink and intact, moist, Posterior pharynx: is normal, airway is patent, no erythema, no exudate. 15:50 Chest/axilla: Inspection: normal. 15:50 Cardiovascular: Rate: normal, Rhythm: regular, Edema: is not appreciated, JVD: is not appreciated. 15:50 Respiratory: the patient does not display signs of respiratory distress, Respirations: normal, no use of accessory muscles, no retractions, labored breathing, is not present, Breath sounds: are clear throughout, no decreased breath sounds, no stridor, no wheezing. 15:50 Abdomen/GI: Inspection: abdomen appears normal, Bowel sounds: active, all quadrants, Palpation: soft, in all quadrants, moderate abdominal tenderness, in the epigastric area, right upper quadrant and left upper quadrant, rebound tenderness, is not appreciated, involuntary guarding, is not appreciated. 15:50 Back: CVA tenderness, is absent. 15:50 Skin: no rash present. 15:50 Neuro: Orientation: to person, place \T\ time. Mentation: is normal, Motor: moves all fours, strength is normal, Sensation: is normal. 16:45 ECG was reviewed by the Attending Physician. cp Vital Signs: 15:31 BP 145 / 97; Pulse 93; Resp 16; Temp 98.1(O); Pulse Ox 98% ; db 15:35 Weight 71.21 kg; Height 4 ft. 10 in. ; db 16:00 BP 128 / 68; Pulse 86; Resp 18; Pulse Ox 99% on R/A; db 16:30 BP 144 / 73; Pulse 87; Resp 16; Pulse Ox 95% on R/A; db 17:38 BP 137 / 59; Pulse 95; Resp 18; Pulse Ox 96% on R/A; db 18:00 BP 119 / 65; Pulse 96; Resp 16; Pulse Ox 99% on R/A; db 18:30 BP 128 / 55; Pulse 99; Resp 16; Pulse Ox 99% ; db 19:43 BP 136 / 66; Pulse 99; Resp 18; Pulse Ox 97% on R/A; kl 15:35 Body Mass Index 32.81 (71.21 kg, 147.32 cm) db MDM: 15:32 Patient [address] [facility] 16:00 Differential diagnosis: gastritis, GI Bleed, non-specific abd pain, pancreatitis, cp Peptic Ulcer Disease, Perf. Duodenal Ulcer, Perf. Gastric Ulcer, Pyelonephritis, Ureterolithiasis, urinary tract infection. 19:25 Data reviewed: vital signs, nurses notes, lab test result(s), EKG, radiologic studies, cp CT scan, plain films. 19:25 Consideration of Admission/Observation Escalation of care including cp admission/observation considered. I considered the following discharge prescriptions or medication management in the emergency department Medications were administered in the Emergency Department. See MAR. Counseling: I had a detailed discussion with the patient and/or guardian regarding: the historical points, exam findings, and any diagnostic results supporting the discharge/admit diagnosis, lab results, radiology results, to return to the emergency department if symptoms worsen or persist or if there are any questions or concerns that arise at home. Response to treatment: the patient's symptoms have markedly improved after treatment, and as a result, I will discharge patient. 09/14 15:33 Order name: Basic Metabolic Panel; Complete Time: 17:[address] [facility] 09/14 17:47 Interpretation: Normal except: NA 133; GLUC 126; GFR 75. 09/14 15:33 Order name: CBC with Diff; Complete Time: 17:[address] [facility] 09/14 17:47 Interpretation: Normal except: WBC 12.50; RBC 5.05; MPV 7.2; JOSE% 78.5; LYM% 14.0; NEUT cp A 9.9. 09/14 15:33 Order name: LFT's; Complete Time: 17:[address] [facility] 09/14 17:48 Interpretation: Normal except: ALB 3.1; GLOB 4.2; A/G 0.7. 09/14 15:33 Order name: Magnesium; Complete Time: 17:[address] [facility] 09/14 17:48 Interpretation: MG 2.2; Reviewed. 09/14 15:33 Order name: NT PRO-BNP; Complete Time: 17:[address] [facility] 09/14 17:48 Interpretation: Abnormal: NT PRO-BNP 170. 09/14 15:33 Order name: PT-INR; Complete Time: 17:[address] [facility] 09/14 17:48 Interpretation: Reviewed. 09/14 15:33 Order name: Troponin HS; Complete Time: 17:[address] [facility] 09/14 17:48 Interpretation: Troponin HS 3.5; Reviewed. 09/14 15:33 Order name: Lipase; Complete Time: 17:[address] [facility] 09/14 15:33 Order name: Urinalysis w/ reflexes; Complete Time: 17:[address] [facility] 09/14 17:48 Interpretation: Normal except: UBLD Trace. 09/14 15:33 Order name: XRAY Chest (1 view); Complete Time: 17:[address] [facility] 09/14 17:07 Order name: Abdomen ; Complete Time: 17:47 [facility] 09/14 17:49 Interpretation: Report reviewed. 09/14 15:33 Order name: EKG; Complete Time: 15:[address] [facility] 09/14 15:33 Order name: Cardiac monitoring; Complete Time: 16:[address] [facility] 09/14 15:33 Order name: EKG - Nurse/Tech; Complete Time: 16:[address] [facility] 09/14 15:33 Order name: IV Saline Lock; Complete Time: 16:[address] [facility] 09/14 15:33 Order name: Labs collected and sent; Complete Time: 16:[address] [facility] 09/14 15:33 Order name: O2 Per Protocol; Complete Time: 16:[address] [facility] 09/14 15:33 Order name: O2 Sat Monitoring; Complete Time: 16:[address] [facility] 09/14 17:49 Order name: PO challenge; Complete Time: 18:13 cp EC:45 Rate is 86 beats/min. Rhythm is regular. MN interval is normal. QRS interval is cp prolonged at 118 msec. QT interval is normal. T waves are Inverted in leads aVR, V2, V3. Interpreted by me. Reviewed by me. Administered Medications: 15:36 CANCELLED (Physician Discretion): NS 0.9% IV 1000 ml IV at 1 bolus Per protocol; 1000 cp mL bolus 15:39 CANCELLED (Physician Discretion): Famotidine IVP 20 mg IVP once; dilute with 10 mL 0.9% cp NaCl; give over 2 minutes 16:18 Drug: Ondansetron IVP 4 mg Route: IVP; Site: right antecubital; db 16:51 Follow up: Response: No adverse reaction db 16:18 Drug: NS 0.9% IV 1000 ml Route: IV; Rate: 500 ml/hr; Site: right antecubital; db 16:18 Drug: Pantoprazole IVP 40 mg Route: IVP; Site: right antecubital; db 16:51 Follow up: Response: No adverse reaction db 17:04 Drug: Ondansetron IVP 4 mg Route: IVP; Site: right antecubital; db 18:04 Follow up: Response: No adverse reaction db 18:12 Drug: Loperamide PO 2 mg Route: PO; db 18:40 Drug: Dicyclomine IM 20 mg Route: IM; Site: left deltoid; db 19:35 Drug: Ketorolac IVP 15 mg Route: IVP; Site: right antecubital; kl 19:42 Follow up: Response: No adverse reaction kl Disposition Summary: 09/14/22 19:25 Discharge Ordered Location: Home cp Problem: new cp Symptoms: have improved cp Condition: Stable cp Diagnosis - Nausea with vomiting, unspecified cp - Diarrhea, unspecified cp - Abdominal pain, unspecified cp Followup: cp - With: Private Physician - When: 2 - 3 days - Reason: Recheck today's complaints Discharge Instructions: - Discharge Summary Sheet cp - Abdominal Pain, Adult cp - Diarrhea, Adult cp - Nausea and Vomiting, Adult cp Forms: - Medication Reconciliation Form cp - Thank You Letter cp - Antibiotic Education cp - Prescription Opioid Use cp Prescriptions: - Pepcid 20 mg Oral Tablet - take 1 tablet by ORAL route every 12 hours for 10 days; 20 tablet; Refills: 0, cp Product Selection Permitted - Zofran 4 mg Oral Tablet - take 1 tablet by ORAL route every 12 hours As needed; 20 tablet; Refills: 0, cp Product Selection Permitted - dicyclomine 20 mg Oral Tablet - take 1 tablet by ORAL route 4 times per day; 30 tablet; Refills: 0, Product cp Selection Permitted Signatures: Dispatcher [employer] Lou Delaney RN RN kl Anderson, Corey, MD MD cha Page, Corey, PA PA cp Benton, Danielle, RN RN db Corrections: (The following items were deleted from the chart) 15:36 15:33 NS 0.9% IV 1000 ml IV at 1 bolus Per protocol; 1000 mL bolus ordered. katia cp 15:39 15:33 Famotidine IVP 20 mg IVP once; dilute with 10 mL 0.9% NaCl; give over 2 minutes cp ordered. katia 17:07 15:34 Abdomen Pelvis W [id number] ordered. EDMS EDMS 18:14 18:14 Immunization history: Client reports receiving the 1st dose of the Covid vaccine, db db
[2022-09-14] MEDS ORDERED: KETOROLAC 30 MG/ML INJ ONE (19:44)
[2022-09-14 19:58] VITALS: TEMP 98.1
[2022-09-14 20:06] VITALS: BP 136/66; O2SAT 97
--- NOTE | 2022-09-15 14:22 | EKG ---
Test Date: 2022-09-14 Test Time: 16:38:15 Cadmium Plater: JIAN MEASUREMENT RESULTS: Intervals: Rate: 86 MI: 136 QRSD: 118 QT: 396 QTc: 473 [place]: P: 49 MI: 136 QRS: -11 T: 84 INTERPRETIVE STATEMENTS: Normal sinus rhythm Low voltage QRS Right bundle branch block Abnormal ECG Compared to ECG 06/10/2021 21:48:00 Low QRS voltage now present Right bundle-branch block now present Sinus tachycardia no longer present Atrial abnormality no longer present T-wave abnormality no longer present Possible ischemia no longer present Electronically Signed On 09-15-22 14:21:14 CDT by Everton Love
== END 2022-09-14 19:49 | disposition home or self-care (01) ==
LOC: ER 15:22
DX: R11.2 Nausea with vomiting, unspecified (principal); R10.10 Upper abdominal pain, unspecified; R19.7 Diarrhea, unspecified; Z88.5 Allergy status to narcotic agent; Z91.013 Allergy to seafood
CPT/HCPCS: 93005; 85025; 81001; 80048; 36415; 83735; 85610; 80076; 84484; 83690; 83880; 74176; 71045; 96375; 96372; 96374; 99285; J0500; C9113; J2405 ×2; J7030